=== PATIENT | female | born 1985 | race African-American/Black ===

== ENCOUNTER 2016-06-29 03:29 | Inpatient (IN) | payer MEDICAID ==
[2016-06-29] VITALS (8 sets, daily range): BP systolic 98–124; BP diastolic 53–76
[~2016-06-29] VITALS: Ht 152.4 cm; Wt 81.6 kg
[~2016-06-29 03:29] MED LIST: Famotidine 20 MG/ 2ML VIAL IVP ONE
--- NOTE | 2016-06-29 04:27 | Emergency Room Report ---
History of Present Illness General Chief Complaint: Lower Extremity Injury Source: Patient Present Illness HPI Patient is a 30-year-old female who presented after increased lower extremity pain and vomiting. Patient gradual onset of symptoms. Patient stated that she been vomiting several times throughout the day. Patient states she had sick contacts similar symptoms. She denied hematemesis or bloody stools. She denies being . She says she had not been having any fever.The patient stated she been vomiting for the past 2 days. She reports having some epigastric pain which he describes as a crampy sensation Allergies: Coded Allergies: No Known Allergies (Unverified , 06/29/16) Patient History Past Medical History: see triage record Last Menstrual Period: A WEEK AND HALF AGO Now: No : 6 Reviewed Nursing Documentation: PMH: Agreed, PSxH: Agreed Nursing Documentation-PMH Past Medical History: No Stated History Review of Systems All Other Systems: negative except mentioned in HPI Physical Exam Vital Signs Date Time Temp Pulse Resp B/P Pulse Ox O2 Delivery O2 Flow Rate FiO2 06/29/16 03:38 99.3 110 18 111/71 97 Room Air Sp02 EP Interpretation: reviewed, normal General Appearance: normal inspection, well appearing, no apparent distress, alert, GCS 15 Head: atraumatic ENT: normal ENT inspection, hearing grossly normal, normal voice Neck: normal inspection, full range of motion, supple, no bony tend Respiratory: normal inspection, lungs clear, normal breath sounds, no respiratory distress, no retraction, no wheezing Cardiovascular #1: regular rate, rhythm, no edema Gastrointestinal: normal inspection, normal bowel sounds, non tender, soft, no guarding, no hernia, tenderness - epigastric Genitourinary: no CVA tenderness Musculoskeletal: normal inspection, back normal, normal range of motion Neurologic: normal inspection, alert, responsive, speech normal Psychiatric: normal inspection, judgement/insight normal, mood/affect normal Skin: normal inspection, normal color, no rash Medical Decision Making Diagnostic Impression: Primary Impression: UTI (urinary tract infection) Additional Impressions: Dehydration Hypokalemia ER Course Patient presented for abdominal pain. Differential diagnoses included ischemic bowel, appendicitis, perforated viscus, abdominal aortic aneurysm, inferior myocardial infarction, viral gastroenteritis Because of complexity of patient's case laboratory testing and imaging studies were ordered. Patient is given antiemetics.Patient was noted to have evidence of some dehydration.The patient started on IV fluids. Patient was given oral potassium.Gradual worsening of her during emergency department course she started on IV antibiotics. The patient was noted to have some evidence of urinary tract infection and as well as dehydration. The patient will be admitted to the hospital for further treatment of fever as well as rehydration. Laboratory Tests Test 06/29/16 04:34 06/29/16 04:39 06/29/16 05:25 Urine Color Yellow Urine Appearance Slightly cloudy Urine pH 6 (4.5-8.0) Urine Specific [place] 1.020 (1.005-1.035) Urine Protein 2+ (NEGATIVE) H Urine Glucose (UA) Negative (NEGATIVE) Urine Ketones 4+ (NEGATIVE) H Urine Occult Blood 2+ (NEGATIVE) H Urine Nitrite Negative (NEGATIVE) Urine Bilirubin Negative (NEGATIVE) Urine Urobilinogen 1 MG/DL (0.0-1.0) H Urine Leukocyte Esterase 2+ (NEGATIVE) H Urine RBC 2-4 /HPF (0 - 2) H Urine WBC 15-20 /HPF (0 - 2) H Urine Squamous Epithelial Cells Many /LPF (NONE/OCC) H Urine Bacteria Moderate /HPF (NONE) H Urine HCG, Qualitative Negative White Blood Count 3.1 K/UL (4.8-10.8) L Red Blood Count 4.31 M/UL (4.20-5.40) Hemoglobin 15.4 G/DL (12.0-16.0) Hematocrit 44.7 % (37.0-47.0) Mean Corpuscular Volume 104 FL (80-99) H Mean Corpuscular Hemoglobin 35.6 PG (27.0-31.0) H Mean Corpuscular Hemoglobin Concent 34.4 G/DL (32.0-36.0) Red Cell Distribution Width 10.2 % (11.6-14.8) L Platelet Count 148 K/UL (150-450) L Mean Platelet Volume 8.9 FL (6.5-10.1) Neutrophils (%) (Auto) % (45.0-75.0) Lymphocytes (%) (Auto) % (20.0-45.0) Monocytes (%) (Auto) % (1.0-10.0) Eosinophils (%) (Auto) % (0.0-3.0) Basophils (%) (Auto) % (0.0-2.0) Sodium Level 140 mEQ/L (135-145) Potassium Level 3.3 mEQ/L (3.4-4.9) L Chloride Level 98 mEQ/L (98-107) Carbon Dioxide Level 26 mEQ/L (20-30) Anion Gap 16 (5-15) H Blood Urea Nitrogen 8 mg/dL (7-23) Creatinine 0.8 mg/dL (0.5-0.9) Estimate Glomerular Filtration Rate > 60 mL/min (>60) Glucose Level 107 mg/dL (74-106) H Calcium Level 7.9 mg/dL (8.6-10.2) L Total Bilirubin 0.3 mg/dL (0.0-1.2) Aspartate Amino Transferase (AST) 19 U/L (5-40) Alanine Aminotransferase (ALT) 17 U/L (3-33) Alkaline Phosphatase 41 U/L (35-104) Total Protein 6.4 g/dL (6.6-8.7) L Albumin 3.6 g/dL (3.5-5.2) Globulin 2.8 g/dL Albumin/Globulin Ratio 1.2 (1.0-2.7) Lipase 21 U/L (< 60) Chest X-Ray Diagnostic Results EP Interpretation: Yes Findings: no consolidation, no effusion, no pneumothorax, no acute cardiopulmonary disease Number of Views: 1 Last Vital Signs Date Time Temp Pulse Resp B/P Pulse Ox O2 Delivery O2 Flow Rate FiO2 06/29/16 03:38 99.3 110 18 111/71 97 Room Air Status: unchanged Disposition: ADMITTED INPATIENT Condition: Serious Scripts Ondansetron (Zofran) 4 Mg Tablet 4 MG ORAL Q6H Y for Nausea & Vomiting, #30 TAB 0 Refills Prov: Ozzie Zayas 06/29/16 Cephalexin* (KEFLEX*) 500 Mg Capsule 500 MG ORAL Q6H, #28 CAP 0 Refills Prov: Ozzie Zayas 06/29/16 Ozzie Zayas Jun 29, 2016 04:27
[2016-06-29 04:53] LABS: MEAN CORPUSCULAR HEMOGLOBIN 35.6 PG (27.0-31.0); MEAN CORPUSCULAR HGB CONC 34.4 G/DL (32.0-36.0); MEAN CORPUSCULAR VOLUME 104 FL (80-99); MEAN PLATELET VOLUME 8.9 FL (6.5-10.1); PLATELET COUNT 148 K/UL (150-450); RED BLOOD COUNT 4.31 M/UL (4.20-5.40); RED CELL DISTRIBUTION WIDTH 10.2 % (11.6-14.8); WHITE BLOOD COUNT 3.1 K/UL (4.8-10.8)
[2016-06-29 05:00] LABS: APPEARANCE,URINE SLIGHTLY CLOUDY; KETONES,URINE 4+ (NEGATIVE); LEUKOCYTE ESTERASE ,URINE 2+ (NEGATIVE); NITRITE,URINE NEGATIVE (NEGATIVE); PH,URINE 6 (4.5-8.0); PROTEIN,URINE 2+ (NEGATIVE); UROBILINOGEN,URINE 1 MG/DL (0.0-1.0)
[2016-06-29 05:08] LABS: BACTERIA,URINE MODERATE /HPF; SQUAMOUS EPITHELIAL CELL,UR MANY /LPF (NONE/OCC); WBC,URINE 15-20 /HPF (0 - 2)
[2016-06-29] MEDS ORDERED: cefTRIAXone 1 GM in NS 55 ML IVPB ONE (05:15)
[2016-06-29 05:52] LABS: ALANINE AMINOTRANSFERASE 17 U/L (3-33); ALBUMIN/GLOBULIN RATIO 1.2 (1.0-2.7); ANION GAP 16 (5-15); ASPARTATE AMINO TRANSFERASE 19 U/L (5-40); CALCIUM 7.9 mg/dL (8.6-10.2); CARBON DIOXIDE 26 mEQ/L (20-30); CHLORIDE 98 mEQ/L (98-107); CREATININE 0.8 mg/dL (0.5-0.9); GLOMERULAR FILTRATION RATE > 60 mL/min (>60); HEMOLYSIS 16; LIPASE 21 U/L (< 60); POTASSIUM 3.3 mEQ/L (3.4-4.9); SODIUM 140 mEQ/L (135-145); TOTAL PROTEIN 6.4 g/dL (6.6-8.7)
[2016-06-29] MEDS: D5 1/2NS w/KCl 20mEq 1,000 ML IV SCH ×2 (05:56→13:15)
[2016-06-29] MEDS ORDERED: KEFLEX500 MG ORAL (06:21)
[2016-06-29] MEDS ORDERED: ZOFRAN4 MG ORAL (06:21)
[2016-06-29] MEDS ORDERED: Ketorolac 30mg Inj IV ONE (08:15)
[2016-06-29] MEDS ORDERED: Famotidine 20 MG/ 2ML VIAL IVP SCH (09:00)
--- NOTE | 2016-06-29 11:25 | Consultation ---
History of Present Illness General Date patient seen: Jun 29, 2016 Time patient seen: 11:21 Chief Complaint: Lower Extremity Injury Reason for Consultation: UTI Present Illness HPI 30 yo female with 1 week of progressive lower abdominal discomfort and weakness. Noted last week, admits to fevers. Did not seek medical care because she thought it was viral and would get better. Today felt very weak and was vomiting. Admitted to fevers as well. Denies dysuria, back pain, flank pain, hematuria. Allergies: Coded Allergies: No Known Allergies (Unverified , 06/29/16) Medication History Scheduled Cephalexin* (Keflex*), 500 MG ORAL Q6H Scheduled PRN Ondansetron (Zofran), 4 MG ORAL Q6H PRN for Nausea & Vomiting Patient History History Provided By: Patient, Family Member Healthcare decision maker Resuscitation status Advanced Directive on File Review of Systems Constitutional: Reports: fever, weakness Eye: Denies: acuity changes, blurred vision, discharge, double vision, eye pain , no symptoms, nose congestion, nose pain, other, see HPI, tearing ENT: Denies: ear discharge, ear pain, hearing loss, mouth pain, nasal discharge , no symptoms, nose congestion, nose pain, other, see HPI, throat pain, throat swelling Respiratory: Denies: MITCHELL, cough, no symptoms, orthopnea, other, see HPI, shortness of breath, sputum, stridor, wheezing Cardiovascular: Denies: PND, chest pain, edema, no symptoms, other, palpitations, see HPI, syncope Gastrointestinal: Reports: abdominal pain Genitourinary: Denies: discharge, dysuria, frequency, hematuria, incontinence, no symptoms, other, pain, retention, see HPI, urgency, vag bleed/dc Musculoskeletal: Denies: back pain, gout, joint pain, joint swelling, muscle pain, muscle stiffness, no symptoms, other, see HPI Skin: Denies: change in color, change in hair/nails, dryness, lesions, no symptoms, other, rash, see HPI Psychiatric: Denies: HI, SI, anxiety, depressed feelings, emotional problems, hallucinations, no symptoms, other, prior hx, see HPI Neurological: Denies: dizziness, focal weakness, headache, no symptoms, numbness, other, paresthesia, see HPI, seizure, syncope, tingling, tremors Endocrine: Denies: excessive sweating, flushing, increased thirst, increased urine, intolerance to temperature, no symptoms, other, see HPI, unexplained weight loss Hematologic/Lymphatic: Denies: anemia, blood clots, diathesis, easy bleeding, easy bruising, no symptoms, other, see HPI, swollen glands Physical Exam General Appearance: WD/WN HEENT: normocephalic, atraumatic Neck: non-tender, supple Respiratory/Chest: lungs clear Cardiovascular/Chest: normal rate, regular rhythm Abdomen: non tender, soft Extremities: non-tender Neurologic: alert, oriented x 3 Last 24 Hour Vital Signs Date Time Temp Pulse Resp B/P Pulse Ox O2 Delivery O2 Flow Rate FiO2 06/29/16 11:16 70 20 99/69 100 Room Air 06/29/16 09:22 91 20 109/67 100 Room Air 06/29/16 07:47 84 18 98/57 100 Room Air 06/29/16 07:06 100.3 83 18 116/76 100 Room Air 06/29/16 05:59 99.3 110 18 111/71 97 Room Air 06/29/16 03:38 99.3 110 18 111/71 97 Room Air Intake and Output 06/28/16 06/29/16 19:00 07:00 Intake Total 1000 ml Balance 1000 ml Intake IV Total 1000 ml # Voids 1 Laboratory Tests Test 06/29/16 04:34 06/29/16 04:39 06/29/16 05:25 Urine Color Yellow Urine Appearance Slightly cloudy Urine pH 6 (4.5-8.0) Urine Specific [place] 1.020 (1.005-1.035) Urine Protein 2+ (NEGATIVE) H Urine Glucose (UA) Negative (NEGATIVE) Urine Ketones 4+ (NEGATIVE) H Urine Occult Blood 2+ (NEGATIVE) H Urine Nitrite Negative (NEGATIVE) Urine Bilirubin Negative (NEGATIVE) Urine Urobilinogen 1 MG/DL (0.0-1.0) H Urine Leukocyte Esterase 2+ (NEGATIVE) H Urine RBC 2-4 /HPF (0 - 2) H Urine WBC 15-20 /HPF (0 - 2) H Urine Squamous Epithelial Cells Many /LPF (NONE/OCC) H Urine Bacteria Moderate /HPF (NONE) H Urine HCG, Qualitative Negative White Blood Count 3.1 K/UL (4.8-10.8) L Red Blood Count 4.31 M/UL (4.20-5.40) Hemoglobin 15.4 G/DL (12.0-16.0) Hematocrit 44.7 % (37.0-47.0) Mean Corpuscular Volume 104 FL (80-99) H Mean Corpuscular Hemoglobin 35.6 PG (27.0-31.0) H Mean Corpuscular Hemoglobin Concent 34.4 G/DL (32.0-36.0) Red Cell Distribution Width 10.2 % (11.6-14.8) L Platelet Count 148 K/UL (150-450) L Mean Platelet Volume 8.9 FL (6.5-10.1) Neutrophils (%) (Auto) % (45.0-75.0) Lymphocytes (%) (Auto) % (20.0-45.0) Monocytes (%) (Auto) % (1.0-10.0) Eosinophils (%) (Auto) % (0.0-3.0) Basophils (%) (Auto) % (0.0-2.0) Sodium Level 140 mEQ/L (135-145) Potassium Level 3.3 mEQ/L (3.4-4.9) L Chloride Level 98 mEQ/L (98-107) Carbon Dioxide Level 26 mEQ/L (20-30) Anion Gap 16 (5-15) H Blood Urea Nitrogen 8 mg/dL (7-23) Creatinine 0.8 mg/dL (0.5-0.9) Estimat Glomerular Filtration Rate > 60 mL/min (>60) Glucose Level 107 mg/dL (74-106) H Calcium Level 7.9 mg/dL (8.6-10.2) L Total Bilirubin 0.3 mg/dL (0.0-1.2) Aspartate Amino Transf (AST/SGOT) 19 U/L (5-40) Alanine Aminotransferase (ALT/SGPT) 17 U/L (3-33) Alkaline Phosphatase 41 U/L (35-104) Total Protein 6.4 g/dL (6.6-8.7) L Albumin 3.6 g/dL (3.5-5.2) Globulin 2.8 g/dL Albumin/Globulin Ratio 1.2 (1.0-2.7) Lipase 21 U/L (< 60) Height (Feet): 5 Weight (Pounds): 180 Medications Current Medications Medications (Trade) Dose Ordered Sig/Bill Route PRN Reason Start Time Stop Time Status Last Admin Dose Admin Dextrose/ Electrolytes (D5 0.45%NS W/ KCl 20mEq) 1,000 ml @ 125 mls/hr Q8H IV 06/29/16 05:15 07/29/16 05:14 06/29/16 05:56 Famotidine 20 mg 20 mg Q12HR IVP 06/29/16 09:00 07/29/16 08:59 06/29/16 04:53 Assessment/Plan Status: stable Assessment/Plan 30 yo female with likely cystitis turned to pyelonephritis based on symptom history and progression to fevers and nausea. No pain in urination or in flank. Likely pyelonephritis. Recommend supportive care, IVF, IV abx. Will need 2 weeks total of abx. 1. urine culture 2. IVF 3. IV abx 4. 2 total weeks of abx. Erasto Harris M.D. Jun 29, 2016 11:24
--- NOTE | 2016-06-29 11:32 | Diagnostic Imaging Report ---
Indication: Dyspnea Comparison: None A single view chest radiograph was obtained. Findings: Cardiomediastinal appearance is within normal limits for age. Pulmonary vascularity is appropriate. The diaphragmatic contour is smooth and costophrenic angles are sharp. No pleural effusions are identified. The bones are unremarkable. Impression: No acute findings
--- NOTE | 2016-06-29 13:25 | Infectious Diseases Prog Note ---
Assessment/Plan Problems: (1) Bronchitis, acute Assessment & Plan: will screen for influenza and strep A, start ceftriaxon and zithromax empirically (2) Acute pyelonephritis Assessment & Plan: will send blood culture, and urine culture, and start ceftriaxone empirically (3) Abdominal pain Assessment & Plan: due to number 1 , continue pain management as per primary (4) Nausea & vomiting Assessment & Plan: due to pyelonephritis, continue supportive care (5) Dehydration Assessment & Plan: continue ivf for hydration Subjective Allergies: Coded Allergies: No Known Allergies (Unverified , 06/29/16) Objective Vital Signs Last 24 Hour Vital Signs Date Time Temp Pulse Resp B/P Pulse Ox O2 Delivery O2 Flow Rate FiO2 06/29/16 12:14 99.1 63 18 111/53 98 Room Air 06/29/16 11:46 98.9 06/29/16 11:44 100.3 70 20 99/69 100 Room Air 06/29/16 11:16 70 20 99/69 100 Room Air 06/29/16 09:22 91 20 109/67 100 Room Air 06/29/16 07:47 84 18 98/57 100 Room Air 06/29/16 07:06 100.3 83 18 116/76 100 Room Air 06/29/16 05:59 99.3 110 18 111/71 97 Room Air 06/29/16 03:38 99.3 110 18 111/71 97 Room Air Height (Feet): 5 Height (Inches): 0.00 Weight (Pounds): 180 Laboratory Tests Test 06/29/16 04:34 06/29/16 04:39 06/29/16 05:25 Urine Color Yellow Urine Appearance Slightly cloudy Urine pH 6 (4.5-8.0) Urine Specific [place] 1.020 (1.005-1.035) Urine Protein 2+ (NEGATIVE) H Urine Glucose (UA) Negative (NEGATIVE) Urine Ketones 4+ (NEGATIVE) H Urine Occult Blood 2+ (NEGATIVE) H Urine Nitrite Negative (NEGATIVE) Urine Bilirubin Negative (NEGATIVE) Urine Urobilinogen 1 MG/DL (0.0-1.0) H Urine Leukocyte Esterase 2+ (NEGATIVE) H Urine RBC 2-4 /HPF (0 - 2) H Urine WBC 15-20 /HPF (0 - 2) H Urine Squamous Epithelial Cells Many /LPF (NONE/OCC) H Urine Bacteria Moderate /HPF (NONE) H Urine HCG, Qualitative Negative White Blood Count 3.1 K/UL (4.8-10.8) L Red Blood Count 4.31 M/UL (4.20-5.40) Hemoglobin 15.4 G/DL (12.0-16.0) Hematocrit 44.7 % (37.0-47.0) Mean Corpuscular Volume 104 FL (80-99) H Mean Corpuscular Hemoglobin 35.6 PG (27.0-31.0) H Mean Corpuscular Hemoglobin Concent 34.4 G/DL (32.0-36.0) Red Cell Distribution Width 10.2 % (11.6-14.8) L Platelet Count 148 K/UL (150-450) L Mean Platelet Volume 8.9 FL (6.5-10.1) Neutrophils (%) (Auto) % (45.0-75.0) Lymphocytes (%) (Auto) % (20.0-45.0) Monocytes (%) (Auto) % (1.0-10.0) Eosinophils (%) (Auto) % (0.0-3.0) Basophils (%) (Auto) % (0.0-2.0) Sodium Level 140 mEQ/L (135-145) Potassium Level 3.3 mEQ/L (3.4-4.9) L Chloride Level 98 mEQ/L (98-107) Carbon Dioxide Level 26 mEQ/L (20-30) Anion Gap 16 (5-15) H Blood Urea Nitrogen 8 mg/dL (7-23) Creatinine 0.8 mg/dL (0.5-0.9) Estimat Glomerular Filtration Rate > 60 mL/min (>60) Glucose Level 107 mg/dL (74-106) H Calcium Level 7.9 mg/dL (8.6-10.2) L Total Bilirubin 0.3 mg/dL (0.0-1.2) Aspartate Amino Transf (AST/SGOT) 19 U/L (5-40) Alanine Aminotransferase (ALT/SGPT) 17 U/L (3-33) Alkaline Phosphatase 41 U/L (35-104) Total Protein 6.4 g/dL (6.6-8.7) L Albumin 3.6 g/dL (3.5-5.2) Globulin 2.8 g/dL Albumin/Globulin Ratio 1.2 (1.0-2.7) Lipase 21 U/L (< 60) Current Medications Medications (Trade) Dose Ordered Sig/Bill Route PRN Reason Start Time Stop Time Status Last Admin Dose Admin Acetaminophen (Tylenol) 650 mg Q4H PRN ORAL Mild Pain/Temp > 100.5 06/29/16 13:00 07/29/16 12:59 UNV Dextrose/ Electrolytes (D5 0.45%NS W/ KCl 20mEq) 1,000 ml @ 125 mls/hr Q8H IV 06/29/16 05:15 07/29/16 05:14 06/29/16 05:56 Famotidine 20 mg 20 mg Q12HR IVP 06/29/16 09:00 07/29/16 08:59 06/29/16 04:53 Ondansetron HCl (Zofran) 4 mg Q6H PRN IVP Nausea & Vomiting 06/29/16 13:00 07/29/16 12:59 UNV Radha Sandoval M.D. Jun 29, 2016 13:25
[2016-06-29] MEDS: Azithromycin 250 MG in D5W 275 ML IV SCH (17:06)
[2016-06-29] MEDS ORDERED: Potassium Chloride 10 MEQ in D5 1/2NS 1,000 ML IV SCH (18:15)
[2016-06-29] MEDS: Metoclopramide 10mg/2ml Inj IVP PRN (18:38)
[2016-06-29] MEDS: Pantoprazole Inj IVP SCH (18:39)
[2016-06-29] MEDS: D5 1/2NS 1,000 ML IV SCH (18:39)
[2016-06-29] MEDS: cefTRIAXone 2 GM in D5W 110 ML IVPB SCH (19:51)
--- NOTE | 2016-06-29 21:08 | Consultation ---
DATE OF CONSULTATION: INFECTIOUS DISEASE CONSULTATION REQUESTING PHYSICIAN: Clovis Santiago M.D. REASON FOR CONSULTATION: Cough, upper respiratory symptom, and abdominal pain with nausea, vomiting, and recommendation for antibiotics therapy. HISTORY OF THE PRESENT ILLNESS: Ms. Janessa Reece is a 30-year-old female with no significant past medical history, presented to the hospital with worsening abdominal pain, nausea, vomiting, and nonproductive cough. It started on the weekend. The patient had initially upper respiratory illness, then she developed cough nonproductive with sore throat, followed by abdominal pain, nausea, and vomiting to the point that she could not keep anything down in her stomach. She denied any recent travel, but her son was recently sick with the viral illness. Denied any hematemesis or bloody stool. She has not been eating since the weekend due to the nausea and vomiting for the last couple of days. She describes her abdominal pain as cramps on and off, gets worse with eating. The patient had workup in the emergency room, showed evidence of UTI with negative chest x-ray for any acute infiltration. The patient was admitted to the hospital after she received dose of an IV antibiotics treatment for further evaluation and management and I was consulted by the primary provider for antibiotics recommendation for urine infection possible pyelonephritis and upper respiratory infection. REVIEW OF SYSTEMS: A 14-point system reviewed were all negative apart from the one I mentioned above in my History and Physical. PAST MEDICAL HISTORY: Negative. PAST SURGICAL HISTORY: Negative. SOCIAL HISTORY: She lives at home with son and sister no recent drugs, tobacco, or alcohol. FAMILY HISTORY: Negative for recurrent infection or immunocompromised condition. ALLERGIES: She has no known drug allergy. MEDICATIONS: She received ceftriaxone in the emergency room. The rest of her medications please refer to [facility]. PHYSICAL EXAMINATION: VITAL SIGNS: Temperature 99.1 degrees, pulse 63, respirations 18, blood pressure 111/53, and pulse oximetry 98% on room air. GENERAL: Young female, up in bed, is alert, coughing, and vomiting bilious material. Awake, alert, in mild distress. HEENT: Normocephalic and atraumatic. Pupils reactive to light equally. Moist oral mucosa. No exudate. Congested throat with mildly large tonsils. NECK: Supple. No lymphadenopathy. CARDIOVASCULAR: Regular rate and rhythm. No murmur or gallop. LUNGS: She had diffuse wheezing on both lung abraham with diminished breathing sounds at the bases. Normal breathing efforts. ABDOMEN: Soft and tender in the epigastric area. No rebound. No organomegaly. No ascites. EXTREMITIES: No edema. No cyanosis. LABORATORY AND DIAGNOSTIC DATA: Laboratory showed white count of 3.1, hemoglobin of 15.4, and platelet count of 148,000. BUN of 8, creatinine of 0.8. AST of 19 and ALT of 17. Urinalysis showed +2 leukocyte esterase, WBC 15 to 20 and many squamous epithelial cells and moderate bacteria. Urine HCG negative. Imaging, chest x-ray showed no acute finding. ASSESSMENT AND PLAN: 1. Acute bronchitis suspect recent upper respiratory infection. We will screen the patient for influenza and Streptococcus A, start ceftriaxone and Zithromax empiric treatment, monitor syndrome. 2. Acute pyelonephritis, we will send blood culture and urine culture. Start ceftriaxone empirically. 3. Abdominal pain due to acute pyelonephritis. Mainly continue pain management and supportive care as needed. 4. Nausea and vomiting due to pyelonephritis most likely, continue supportive care and nausea medication. Consult Gastrointestinal. 5. Dehydration, continue intravenous fluid for hydration. Encourage oral intake as needed. Radha Sandoval M.D. DR: Jose JOB#: [id number] CC:
--- NOTE | 2016-06-29 22:58 | Consultation ---
DATE OF CONSULTATION: 06/29/2016 HEMATOLOGY/ONCOLOGY CONSULTATION CONSULTING PHYSICIAN: Daniele Powers M.D. REQUESTING PHYSICIAN: Clovis Santiago M.D. REASON FOR CONSULTATION: Evaluation of leukopenia and thrombocytopenia. IDENTIFICATION DATA: Dear Dr. Clovis Santiago, The patient is a pleasant 30-year-old female with a past medical history, which is significant for abdominal pain as well as nausea and vomiting, which began approximately two weeks ago. The patient was noted to have fever in the ER and she was admitted for further evaluation and care. She has been feeling weak as well as having nausea and vomiting bilious substance. She had a white count of 3.2 and platelet count of 148,000. Therefore, Hematology service was consulted for evaluation and treatment of underlying blood dyscrasia . PAST MEDICAL HISTORY: None noted. PAST SURGICAL HISTORY: None. MEDICATIONS: Keflex. ALLERGIES: No known drug allergies. REVIEW OF SYSTEMS: Constitutional: The patient with fever and some weakness noted. No night sweats however. HEENT: No headache, hearing, or vision changes. Breasts: No lumps, pain, or discharge. Pulmonary: No cough, sputum, or shortness of breath. Cardiovascular: No chest pain, tightness, or palpitations. Gastrointestinal: The patient does have some nausea and does have vomiting as well as abdominal pain. Genitourinary: No dysuria, frequency, or urgency. Musculoskeletal: No joint swelling, muscle pain, or trauma. Neurologic: No dizziness, fainting, or seizures. PHYSICAL EXAMINATION: GENERAL: The patient is in no acute distress. VITAL SIGNS: Temperature 100.3 degrees Fahrenheit, pulse of 83, respiratory rate 12, blood pressure 116/96, and pulse oximetry is 100% on room air. PULMONARY: Decreased breath sounds. CARDIOVASCULAR: Regular rhythm. No S3 or S4. ABDOMEN: Soft, nontender, and nondistended. EXTREMITIES: There is 1+ edema. LABORATORY DATA: WBC 3.1, hemoglobin 15.4, hematocrit 45 , and platelet count 148,000. Urine is positive for leukocyte esterase as well as urine WBCs of 15 and 20 and urine bacteria was moderate. Squamous cells were many as well. ASSESSMENT: 1. Leukopenia potentially secondary to underlying infection versus benign congenital neutropenia versus other causes such as viral etiology. We will workup as noted below. 2. Thrombocytopenia potentially secondary to infection versus viral process versus baseline. 3. Pyelonephritis potentially secondary to urinary tract infection with history of fever and chills. 4. Abdominal pain. 5. dehydration. RECOMMENDATIONS: 1. Monitor counts. 2. Peripheral smear ordered. 3. Hepatitis panel and HIV ordered. 4. Ultrasound of the abdomen pending. 5. Antibiotics as needed. 6. GI prophylaxis with Pepcid. 7. Zofran for nausea and vomiting. 8. Discussed with staff. Thank you Dr. Clovis Santiago for this kind referral. Please do not hesitate to contact me for any further questions. Daniele Powers M.D. DR: TRENT JOB#: [id number] CC:
[2016-06-30] VITALS: BP 102/51
[2016-06-30] MEDS: Metoclopramide 10mg/2ml Inj IVP PRN ×2 (00:52→08:23)
[2016-06-30] MEDS: D5 1/2NS 1,000 ML IV SCH ×3 (02:48→18:30)
[2016-06-30] MEDS: Morphine Sulfate 2mg/ml Inj IVP PRN ×3 (02:49→17:59)
[2016-06-30 04:00] VITALS: BP 126/77
[2016-06-30 08:00] VITALS: BP 113/69
--- NOTE | 2016-06-30 08:16 | Consultation ---
History of Present Illness General Date patient seen: Jun 30, 2016 Present Illness Allergies: Coded Allergies: No Known Allergies (Unverified , 06/29/16) Medication History Scheduled Cephalexin* (Keflex*), 500 MG ORAL Q6H Scheduled PRN Ondansetron (Zofran), 4 MG ORAL Q6H PRN for Nausea & Vomiting Patient History Healthcare decision maker Resuscitation status Full Code Advanced Directive on File Physical Exam Last 24 Hour Vital Signs Date Time Temp Pulse Resp B/P Pulse Ox O2 Delivery O2 Flow Rate FiO2 06/30/16 04:00 100.4 95 18 126/77 99 Room Air 06/30/16 00:00 98.4 83 18 102/51 100 Room Air 06/29/16 20:00 100.0 95 16 124/73 100 Room Air 06/29/16 17:00 100.2 89 16 118/58 98 Room Air 06/29/16 12:14 99.1 63 18 111/53 98 Room Air 06/29/16 11:46 98.9 06/29/16 11:44 100.3 70 20 99/69 100 Room Air 06/29/16 11:16 70 20 99/69 100 Room Air 06/29/16 09:22 91 20 109/67 100 Room Air Intake and Output 06/29/16 06/30/16 19:00 07:00 Intake Total 0 ml 30 ml Output Total 500 ml Balance 0 ml -470 ml Intake Oral 0 ml 30 ml Output Emesis 500 ml # Voids 3 Height (Feet): 5 Height (Inches): 0.00 Weight (Pounds): 180 Medications Current Medications Medications (Trade) Dose Ordered Sig/Bill Route PRN Reason Start Time Stop Time Status Last Admin Dose Admin Acetaminophen (Tylenol) 650 mg Q4H PRN ORAL Mild Pain/Temp > 100.5 06/29/16 13:45 07/29/16 13:44 Azithromycin/ Dextrose (Zithromax/D5W) 275 ml @ 275 mls/hr Q24HRS IV 06/29/16 16:00 07/03/16 15:59 06/29/16 17:06 Ceftriaxone Sodium 2 gm/ Dextrose 110 ml @ 220 mls/hr Q24H IVPB 06/29/16 18:00 07/06/16 17:59 06/29/16 19:51 Dextrose/Sodium Chloride (D5 0.45% NS) 1,000 ml @ 125 mls/hr Q8H IV 06/29/16 18:30 07/29/16 18:29 06/30/16 02:48 Metoclopramide HCl (Reglan) 10 mg Q6H PRN IVP Nausea & Vomiting 06/29/16 18:30 07/29/16 18:29 06/30/16 00:52 Morphine Sulfate (Morphine Sulfate) 2 mg Q4H PRN IVP For Pain 06/30/16 01:45 07/07/16 01:44 06/30/16 02:49 Ondansetron HCl 4 mg 4 mg Q6H PRN IVP Nausea & Vomiting 06/29/16 13:45 07/29/16 13:44 06/30/16 00:06 Pantoprazole 40 mg 40 mg DAILY IVP 06/29/16 18:15 07/29/16 18:14 06/29/16 18:39 Assessment/Plan Problem List: (1) Acute pyelonephritis ICD Codes: N10 - Acute pyelonephritis SNOMED: 67353885 (2) Abdominal pain Assessment & Plan: intractable ICD Codes: R10.9 - Unspecified abdominal pain SNOMED: 14697110 (3) UTI (urinary tract infection) ICD Codes: N39.0 - Urinary tract infection, site not specified SNOMED: 86371525 Assessment/Plan seen dictated WYATT NOVOA Jun 30, 2016 08:16
--- NOTE | 2016-06-30 08:22 | General Progress Note ---
Assessment/Plan Assessment/Plan ASSESSMENT: 1. Leukopenia potentially secondary to underlying infection versus benign congenital neutropenia versus other causes such as viral etiology. Will workup as noted below. HIV is negative 2. Thrombocytopenia potentially secondary to infection versus viral process versus baseline. Is at 148k 3. Pyelonephritis potentially secondary to urinary tract infection with history of fever and chills. 4. Abdominal pain. 5. Dehydration. RECOMMENDATIONS: 1. Monitor counts. 2. Peripheral smear ordered. 3. Hepatitis panel pend and HIV negative 4. Ultrasound of the abdomen pending. 5. Antibiotics as needed. 6. GI prophylaxis with Pepcid. 7. Zofran for nausea/vomiting. 8. staff. Thank you, Daniele Powers MD Subjective Constitutional: Reports: no symptoms HEENT: Reports: no symptoms Cardiovascular: Reports: no symptoms Respiratory: Reports: no symptoms Gastrointestinal/Abdominal: Reports: no symptoms Genitourinary: Reports: no symptoms Neurologic/Psychiatric: Reports: anxiety Endocrine: Reports: no symptoms Hematologic/Lymphatic: Reports: anemia Allergies: Coded Allergies: No Known Allergies (Unverified , 06/29/16) Subjective stable, no events overnight, no fevers or chills Objective Last 24 Hour Vital Signs Date Time Temp Pulse Resp B/P Pulse Ox O2 Delivery O2 Flow Rate FiO2 06/30/16 04:00 100.4 95 18 126/77 99 Room Air 06/30/16 00:00 98.4 83 18 102/51 100 Room Air 06/29/16 20:00 100.0 95 16 124/73 100 Room Air 06/29/16 17:00 100.2 89 16 118/58 98 Room Air 06/29/16 12:14 99.1 63 18 111/53 98 Room Air 06/29/16 11:46 98.9 06/29/16 11:44 100.3 70 20 99/69 100 Room Air 06/29/16 11:16 70 20 99/69 100 Room Air 06/29/16 09:22 91 20 109/67 100 Room Air Intake and Output 06/29/16 06/30/16 19:00 07:00 Intake Total 0 ml 30 ml Output Total 500 ml Balance 0 ml -470 ml Intake Oral 0 ml 30 ml Output Emesis 500 ml # Voids 3 Height (Feet): 5 Height (Inches): 0.00 Weight (Pounds): 180 General Appearance: alert EENT: TMs normal Neck: supple Cardiovascular: normal rate Respiratory/Chest: normal breath sounds Abdomen: non tender Extremities: non-tender Edema: 1+ Leg (L), 1+ Leg (R) Edema: mild edema Neurologic: oriented x 3 Skin: warm/dry Daniele Powers Jun 30, 2016 08:22
[2016-06-30] MEDS: Pantoprazole Inj IVP SCH (08:24)
--- NOTE | 2016-06-30 09:36 | Diagnostic Imaging Report ---
Indication:Abdominal pain Technique: Grayscale and duplex Doppler imaging of the abdomen performed. Comparison: None Findings: The liver, demonstrated part of the pancreas, gallbladder, aorta and IVC, both kidneys, spleen appear unremarkable. There is no nodularity of the liver surface identified. There is no biliary ductal dilatation identified. CBD is 5.5 mL. Doppler evaluation of the main portal vein shows patency. There is no ascites. No hydronephrosis seen. Impression: Negative abdominal ultrasound.
--- NOTE | 2016-06-30 11:02 | Diagnostic Imaging Report ---
Indication: Abdominal pain Comparison: None Single view of the abdomen obtained Findings: Bowel gas pattern is nonspecific. No mass, ectopic calcifications, or abnormal gas collections are identified. The bones are unremarkable. IUD noted Impression: No acute findings
--- NOTE | 2016-06-30 11:29 | Diagnostic Imaging Report ---
Indication: Abdominal pain Technique: Continuous helical transaxial imaging of the abdomen and pelvis was obtained from the lung bases to the pubic symphysis during intravenous contrast administration. Coronal 2-D reformats were also obtained. Study obtained in a Siemens sensation [address] Total Dose length Product (DLP): [address] Dose Index Volume (CTDIvol): 17 mGy Comparison: None Findings: Mild patchy densities are demonstrated at the periphery of the right lung base anteriorly as well as in the medial aspect of left lower lobe. These are probably areas of atelectasis. Spleen is unremarkable. There is a tiny low-density focus in the liver measuring about 3 mm too small to adequately characterize. This is seen in the inferior right lobe. There is a small hiatal hernia. There is no hydronephrosis. Both kidneys enhance normally. No abnormalities of the pancreas, gallbladder or adrenal glands are appreciated. The stomach is not well-distended on this exam. There is an intrauterine device present. There is a small amount of free fluid within the cul-de-sac likely physiologic given age and sex of the patient. A few diverticula are noted in the colon without evidence of inflammation or diverticulitis. The appendix is seen and appears normal. No evidence of bowel obstruction or free air. Impression: No acute findings demonstrated. Intrauterine device Minimal free fluid within the pelvis probably physiologic. Diverticulosis of the colon. No definite diverticulitis. Small hiatal hernia Tiny hypodensity in the liver too small to characterize. The CT scanner at [facility] is accredited by the [employer] and the scans are performed using protocols designed to limit radiation exposure to as low as reasonably achievable to attain images of sufficient resolution adequate for diagnostic evaluation.
[2016-06-30 12:15] VITALS: BP 107/59
[2016-06-30 12:36] LABS: MEAN CORPUSCULAR HEMOGLOBIN 35.8 PG (27.0-31.0); MEAN CORPUSCULAR VOLUME 100 FL (80-99); MEAN PLATELET VOLUME 6.2 FL (6.5-10.1); PLATELET COUNT 113 K/UL (150-450); RED BLOOD COUNT 3.53 M/UL (4.20-5.40); RED CELL DISTRIBUTION WIDTH 9.6 % (11.6-14.8); WHITE BLOOD COUNT 2.7 K/UL (4.8-10.8)
[2016-06-30 13:43] LABS: BAND NEUTROPHILS % (MANUAL) 3 % (0-8); BASOPHILS % (MANUAL) 0 % (0-2); EOSINOPHILS % (MANUAL) 1 % (0-3); LYMPHOCYTES % (MANUAL) 36 % (20-45); NEUTROPHILS % (MANUAL) 49 % (45-75); PLATELET ESTIMATE DECREASED; TOTAL CELLS COUNTED 100
[2016-06-30 13:44] LABS: ANISOCYTOSIS 1+; PLATELET MORPHOLOGY NORMAL
--- NOTE | 2016-06-30 15:34 | Infectious Diseases Prog Note ---
Assessment/Plan Problems: (1) Bronchitis, acute Assessment & Plan: screening for influenza is negative, screening for strep A is pending , continue ceftriaxon and zithromax empirically (2) Acute pyelonephritis Assessment & Plan: will send blood culture, and urine culture, and start ceftriaxone empirically (3) Abdominal pain Assessment & Plan: due to number 1 , CT was negative for any pathology , continue pain management as per primary (4) Nausea & vomiting Assessment & Plan: due to pyelonephritis, continue supportive care (5) Dehydration Assessment & Plan: continue ivf for hydration Subjective Constitutional: Reports: anorexia, fatigue HEENT: Reports: congestion, dysphagia Respiratory: Reports: productive cough Cardiovascular: Reports: no symptoms Gastrointestinal/Abdominal: Reports: bloating, nausea Genitourinary: Reports: no symptoms Neurologic: Reports: no symptoms Psychiatric: Reports: no symptoms Skin: Reports: no symptoms Endocrine: Reports: no symptoms Hematologic: Reports: no symptoms Allergies: Coded Allergies: No Known Allergies (Unverified , 06/29/16) All Systems: reviewed and negative except above Objective Vital Signs Last 24 Hour Vital Signs Date Time Temp Pulse Resp B/P Pulse Ox O2 Delivery O2 Flow Rate FiO2 06/30/16 12:15 98.2 70 20 107/59 99 Room Air 06/30/16 09:22 99.5 06/30/16 09:00 102.2 06/30/16 08:00 102.2 103 19 113/69 99 Room Air 06/30/16 04:00 100.4 95 18 126/77 99 Room Air 06/30/16 00:00 98.4 83 18 102/51 100 Room Air 06/29/16 20:00 100.0 95 16 124/73 100 Room Air 06/29/16 17:00 100.2 89 16 118/58 98 Room Air Height (Feet): 5 Height (Inches): 0.00 Weight (Pounds): 180 General Appearance: WD/WN, no acute distress HEENT: normocephalic, atraumatic, anicteric, mucous membranes moist Respiratory/Chest: chest wall non-tender, normal breath sounds, no respiratory distress, no accessory muscle use, decreased breath sounds, expiratory wheezing Cardiovascular: normal peripheral pulses, normal rate, regular rhythm, no gallop/murmur Abdomen: normal bowel sounds, soft, non tender, no organomegaly, non distended , no mass Extremities: no cyanosis, no clubbing Skin: no rash, no lesions Microbiology Date/Time Source Procedure Growth Status 06/30/16 11:11 Nasopharynx Influenza Types A,B Antigen (RICHADR) - Final Complete 06/29/16 04:34 Urine,Clean Catch Urine Culture - Preliminary Resulted Laboratory Tests Test 06/30/16 12:25 White Blood Count 2.7 K/UL (4.8-10.8) L Red Blood Count 3.53 M/UL (4.20-5.40) L Hemoglobin 12.6 G/DL (12.0-16.0) Hematocrit 35.1 % (37.0-47.0) L Mean Corpuscular Volume 100 FL (80-99) H Mean Corpuscular Hemoglobin 35.8 PG (27.0-31.0) H Mean Corpuscular Hemoglobin Concent 36.0 G/DL (32.0-36.0) Red Cell Distribution Width 9.6 % (11.6-14.8) L Platelet Count 113 K/UL (150-450) L Mean Platelet Volume 6.2 FL (6.5-10.1) L Neutrophils (%) (Auto) % (45.0-75.0) Lymphocytes (%) (Auto) % (20.0-45.0) Monocytes (%) (Auto) % (1.0-10.0) Eosinophils (%) (Auto) % (0.0-3.0) Basophils (%) (Auto) % (0.0-2.0) Differential Total Cells Counted 100 Neutrophils % (Manual) 49 % (45-75) Lymphocytes % (Manual) 36 % (20-45) Monocytes % (Manual) 11 % (1-10) H Eosinophils % (Manual) 1 % (0-3) Basophils % (Manual) 0 % (0-2) Band Neutrophils 3 % (0-8) Platelet Estimate Decreased L Platelet Morphology Normal Anisocytosis 1+ Current Medications Medications (Trade) Dose Ordered Sig/Bill Route PRN Reason Start Time Stop Time Status Last Admin Dose Admin Acetaminophen (Tylenol) 650 mg Q4H PRN ORAL Mild Pain/Temp > 100.5 06/29/16 13:45 07/29/16 13:44 06/30/16 08:23 Azithromycin/ Dextrose (Zithromax/D5W) 275 ml @ 275 mls/hr Q24HRS IV 06/29/16 16:00 07/03/16 15:59 06/29/16 17:06 Ceftriaxone Sodium 2 gm/ Dextrose 110 ml @ 220 mls/hr Q24H IVPB 06/29/16 18:00 07/06/16 17:59 06/29/16 19:51 Dextrose/Sodium Chloride (D5 0.45% NS) 1,000 ml @ 125 mls/hr Q8H IV 06/29/16 18:30 07/29/16 18:29 06/30/16 11:00 Metoclopramide HCl (Reglan) 10 mg Q6H PRN IVP Nausea & Vomiting 06/29/16 18:30 07/29/16 18:29 06/30/16 08:23 Morphine Sulfate (Morphine Sulfate) 2 mg Q4H PRN IVP For Pain 06/30/16 01:45 07/07/16 01:44 06/30/16 08:23 Ondansetron HCl 4 mg 4 mg Q6H PRN IVP Nausea & Vomiting 06/29/16 13:45 07/29/16 13:44 06/30/16 00:06 Pantoprazole 40 mg 40 mg DAILY IVP 06/29/16 18:15 07/29/16 18:14 06/30/16 08:24 Radha Sandoval M.D. Jun 30, 2016 15:34
[2016-06-30 16:45] VITALS: BP 107/69
[2016-06-30] MEDS: Azithromycin 250 MG in D5W 275 ML IV SCH (16:45)
[2016-06-30] MEDS ORDERED: D5 1/2NS 1000ml IV ONE (17:05)
[2016-06-30] MEDS ORDERED: Tubing IV Secondary IV ONE (17:05)
[2016-06-30] MEDS: cefTRIAXone 2 GM in D5W 110 ML IVPB SCH (18:00)
--- NOTE | 2016-06-30 18:26 | General Progress Note ---
Assessment/Plan Assessment/Plan GI Consult Assessment - Abd pain - N/V - Negative CT, U/S, KUB Recommendations - NPO - IVF - PPI - EGD in am Thank you Abdirashideloise Zhang Subjective Allergies: Coded Allergies: No Known Allergies (Unverified , 06/29/16) Objective Last 24 Hour Vital Signs Date Time Temp Pulse Resp B/P Pulse Ox O2 Delivery O2 Flow Rate FiO2 06/30/16 16:45 98.1 82 20 107/69 98 06/30/16 12:15 98.2 70 20 107/59 99 Room Air 06/30/16 09:22 99.5 06/30/16 09:00 102.2 06/30/16 08:00 102.2 103 19 113/69 99 Room Air 06/30/16 04:00 100.4 95 18 126/77 99 Room Air 06/30/16 00:00 98.4 83 18 102/51 100 Room Air 06/29/16 20:00 100.0 95 16 124/73 100 Room Air Intake and Output 06/29/16 06/30/16 19:00 07:00 Intake Total 0 ml 30 ml Output Total 500 ml Balance 0 ml -470 ml Intake Oral 0 ml 30 ml Output Emesis 500 ml # Voids 3 Laboratory Tests 06/30/16 12:25: White Blood Count 2.7L, Red Blood Count 3.53L, Hemoglobin 12.6, Hematocrit 35.1L , Mean Corpuscular Volume 100H, Mean Corpuscular Hemoglobin 35.8H, Mean Corpuscular Hemoglobin Concent 36.0, Red Cell Distribution Width 9.6L, Platelet Count 113L, Mean Platelet Volume 6.2L, Neutrophils (%) (Auto) , Lymphocytes (%) (Auto) , Monocytes (%) (Auto) , Eosinophils (%) (Auto) , Basophils (%) (Auto) , Differential Total Cells Counted 100, Neutrophils % (Manual) 49, Lymphocytes % ( Manual) 36, Monocytes % (Manual) 11H, Eosinophils % (Manual) 1, Basophils % ( Manual) 0, Band Neutrophils 3, Platelet Estimate DecreasedL, Platelet Morphology Normal, Anisocytosis 1+ Height (Feet): 5 Height (Inches): 0.00 Weight (Pounds): 180 ZHANGFANTASMA Jun 30, 2016 18:25
[2016-06-30 19:11] LABS: ALANINE AMINOTRANSFERASE 15 U/L (3-33); ALBUMIN/GLOBULIN RATIO 1.1 (1.0-2.7); ANION GAP 14 (5-15); ASPARTATE AMINO TRANSFERASE 18 U/L (5-40); CALCIUM 7.6 mg/dL (8.6-10.2); CARBON DIOXIDE 25 mEQ/L (20-30); CHLORIDE 94 mEQ/L (98-107); CREATININE 0.7 mg/dL (0.5-0.9); GLOMERULAR FILTRATION RATE > 60 mL/min (>60); HEMOLYSIS 4; SODIUM 133 mEQ/L (135-145); TOTAL PROTEIN 6.1 g/dL (6.6-8.7)
--- NOTE | 2016-06-30 19:58 | History and Physical Report ---
DATE OF ADMISSION: 06/29/2016 HISTORY OF PRESENT ILLNESS: The patient is admitted for urinary tract infection. The patient also complains of some paresthesias and dysuria and is also noted to have early pyelonephritis. The patient is having abdominal pain for four day as well as vomiting. She is admitted for early pyelonephritis and UTI. Denies chills. Denies rectal bleeding. PAST MEDICAL HISTORY: GERD. PAST SURGICAL HISTORY: None. SOCIAL HISTORY: The patient has a history of drug abuse. No history of alcohol abuse. No smoking. MEDICATIONS: None. FAMILY HISTORY: Noncontributory. REVIEW OF SYSTEMS: HEENT: Denies headache. Respiratory: Denies shortness of breath. Denies cough. Cardiovascular: Denies chest pain. Denies orthopnea. Gastrointestinal: Reports abdominal pain and vomiting for four days. Denies constipation. Denies rectal bleeding. Extremities: Denies pain. Central Nervous System: Denies change in vision or speech pattern. PHYSICAL EXAMINATION: VITAL SIGNS: Temperature is 100.4, pulse is 195, blood pressure 126/77. HEENT: PERRLA. NECK: Supple. No lymphadenopathy. CHEST: Clear to auscultation. GASTROINTESTINAL: Soft. Mild epigastric tenderness. No rebound. No organomegaly. EXTREMITIES: No edema. NEUROLOGIC: Reflexes are equal on both sides. Moves all four extremities. Sensory intact to light touch. LABORATORY DATA: WBC of 3.1, hemoglobin 15.4, and platelets 148,000. Sodium 140, potassium 3.3, BUN of 8, creatinine 0.8, and glucose of 107. ASSESSMENT AND PLAN: 1. Paresthesia. 2. Urinary tract infection. 3. Early pyelonephritis. 4. Vomiting. 5. Abdominal pain. 6. Fever. 7. I have asked Dr. Sandoval, Dr. Guzman, Dr. Mosher, Dr. Holcomb, Dr. Hong and to see the patient for the above mentioned diagnoses and treatment. Clovis Santiago M.D. DR: DOROTA JOB#: [id number] CC:
[2016-06-30 20:00] VITALS: BP 92/55
--- NOTE | 2016-06-30 22:58 | Consultation ---
DATE OF CONSULTATION: 06/30/2016 GASTROLOGY CONSULTATION CONSULTING PHYSICIAN: Yanet Holcmob M.D. REQUESTING PHYSICIAN: Clovis Santiago M.D. CHIEF COMPLAINT: I was asked to see this patient by Dr. Clovis Santiago for evaluation of vomiting. HISTORY OF PRESENT ILLNESS: The patient is a 30-year-old woman without significant history, who came in with a two to three days history of abdominal pain and mild nausea and vomiting, which is intractable. She has had no diarrhea. No home medications. No abdominal surgeries. Her last menstrual cycle was 2 weeks ago. Her test was negative. The patient does have some gastroesophageal reflux symptoms. Her son has had a cough with nausea and vomiting. Her symptoms are somewhat but she is still vomiting. PAST MEDICAL HISTORY: Otherwise negative. ALLERGIES: She had no allergies. FAMILY HISTORY: Noncontributory. SOCIAL HISTORY: The patient does not smoke or drink. She is single. as needed. PHYSICAL EXAMINATION: GENERAL: The patient is a pleasant woman, seen in her room. HEENT: Normocephalic and atraumatic. Sclerae are anicteric. Oropharynx is clear. NECK: Supple. CHEST: Clear to auscultation. CARDIOVASCULAR: Regular rhythm and rate. ABDOMEN: Soft with some mild epigastric tenderness to palpation. EXTREMITIES: Revealed no edema. LABORATORY DATA: Noted. ASSESSMENT: 1. The patient presented with epigastric abdominal pain with nausea and vomiting. She has to workup so far with laboratory. CT scan and ultrasound and KUB were all negative, therefore, she will undergo endoscopy to rule out peptic ulcer disease. The patient understands the indications and risks and agrees to proceed. CT scan and abdominal ultrasound and KUB were all negative. The patient is therefore will be a candidate for endoscopy to evaluate for peptic ulcer disease and has agreed to proceed with antioxidant medications. 2. Intravenous fluids. 3. Proton pump inhibitor. 4. Endoscopy tomorrow morning. Thank you for asking me to participate in the care of this patient. Yanet Holcomb M.D. DR: ANGELY JOB#: [id number] CC:
[2016-07-01] VITALS (20 sets, daily range): BP systolic 98–161; BP diastolic 45–80
--- NOTE | 2016-07-01 02:28 | Consultation ---
DATE OF CONSULTATION: 06/30/2016 PAIN MANAGEMENT CONSULTATION CONSULTING PHYSICIAN: Linda Downing M.D. REFERRING PHYSICIAN: Clovis Santiago M.D. PHYSICIAN LIVESTOCK RANCHER: Edmundo Underwood CHIEF COMPLAINT: Abdominal pain. HISTORY OF PRESENT ILLNESS: This is a 30-year-old female, who is being seen in the Med/Surg floor of [facility] for initial comprehensive pain management consultation. The patient reports that she has been having abdominal pain which is an off and on pain rating it at a 9/10. Pain is acute. She is describing as a burning pain. She has nausea and vomiting and complaints of burning urination. She was admitted under the care of Dr. Santiago, seen by Infectious Disease and started on morphine 2 mg IV every four hours as needed for pain. The patient is comfortable and has been tolerating pain well on the current medication regimen. PAST MEDICAL HISTORY: None. PAST SURGICAL HISTORY: None. MEDICATIONS: None. ALLERGIES: No known drug allergies. SOCIAL HISTORY: Denies smoking, tobacco, drinking alcohol, or drug abuse. REVIEW OF SYSTEMS: Denies rash, fever, chills, sweating, dizziness, drowsiness, blurred vision, sore throat, and change in weight. She complains of nausea, vomiting, and abdominal pain with dysuria. PHYSICAL EXAMINATION: GENERAL: Alert, awake, and oriented x3. VITAL SIGNS: Blood pressure 126/77, heart rate is 95, oxygen saturation 99%, respiratory rate is 18, and temp is 100 degrees Fahrenheit. Height is 5 feet weight is 180 pounds. HEENT: PERRLA. NECK: Range of motion is full in all directions. No tenderness to paracervical muscles. No adenopathy. LUNGS: Decreased breath sounds bilaterally. ABDOMEN: tenderness to palpation. BACK: Range of motion is decreased due to the patient's pain and condition. EXTREMITIES: Upper extremity range of motion is full in all directions. Motor is intact. No cyanosis. No clubbing. No edema. Sensory is intact. Reflexes are not obtainable. No adenopathy. Lower extremity range of motion is decreased due to the patient's clinical condition. Motor is intact. No cyanosis. No clubbing. No edema. Sensory is intact. Reflexes are not obtainable. No adenopathy. ASSESSMENT: This is a 30-year-old female with intractable abdominal pain, pyelonephritis, nausea, and vomiting. PLAN: The patient will be continued on morphine 2 mg IV every 4 hours as needed for severe pain. The patient was discussed with Dr. Downing and Dr. Downing concurred. We will follow up the patient. Thank you very much for the courtesy of this consultation. Linda Downing M.D. YA Underwood DR: DYLAN JOB#: [id number] CC: ALLYSSA
[2016-07-01 07:15] LABS: ANION GAP 13 (5-15); CALCIUM 7.9 mg/dL (8.6-10.2); CARBON DIOXIDE 29 mEQ/L (20-30); CHLORIDE 96 mEQ/L (98-107); CREATININE 0.7 mg/dL (0.5-0.9); GLOMERULAR FILTRATION RATE > 60 mL/min (>60); HEMOLYSIS 8; POTASSIUM 3.5 mEQ/L (3.4-4.9); SODIUM 138 mEQ/L (135-145)
--- NOTE | 2016-07-01 08:32 | General Progress Note ---
Assessment/Plan Problem List: (1) Acute pyelonephritis ICD Codes: N10 - Acute pyelonephritis SNOMED: 67784748 (2) Abdominal pain Assessment & Plan: intractable ICD Codes: R10.9 - Unspecified abdominal pain SNOMED: 18130570 (3) UTI (urinary tract infection) ICD Codes: N39.0 - Urinary tract infection, site not specified SNOMED: 91930743 Assessment/Plan Pt will be continued on Morphine as needed. Pt was d/w Dr. Donwing and he concurred. Subjective Date patient seen: Jul 01, 2016 Time patient seen: 07:30 - am Allergies: Coded Allergies: No Known Allergies (Unverified , 06/29/16) Subjective REVIEW OF SYSTEMS: Denies rash, fever, chills, sweating, dizziness, drowsiness, blurred vision, sore throat, and change in weight. She complains of nausea, vomiting, and abdominal pain with dysuria. SUBJECTIVE: Pain has been better and is rated a 6/10 at this time. Objective Last 24 Hour Vital Signs Date Time Temp Pulse Resp B/P Pulse Ox O2 Delivery O2 Flow Rate FiO2 07/01/16 07:53 97.5 62 14 110/54 98 07/01/16 04:00 96.8 68 18 115/64 94 Room Air 07/01/16 00:00 97.3 72 18 101/45 97 Room Air 06/30/16 20:00 98.4 79 18 92/55 100 Room Air 06/30/16 16:45 98.1 82 20 107/69 98 06/30/16 12:15 98.2 70 20 107/59 99 Room Air 06/30/16 09:22 99.5 06/30/16 09:00 102.2 Intake and Output 06/30/16 07/01/16 19:00 07:00 Intake Total 875 ml 770 ml Balance 875 ml 770 ml Intake Oral 320 ml IV Total 875 ml 450 ml # Voids 1 5 Laboratory Tests 06/30/16 12:25: White Blood Count 2.7L, Red Blood Count 3.53L, Hemoglobin 12.6, Hematocrit 35.1L , Mean Corpuscular Volume 100H, Mean Corpuscular Hemoglobin 35.8H, Mean Corpuscular Hemoglobin Concent 36.0, Red Cell Distribution Width 9.6L, Platelet Count 113L, Mean Platelet Volume 6.2L, Neutrophils (%) (Auto) , Lymphocytes (%) (Auto) , Monocytes (%) (Auto) , Eosinophils (%) (Auto) , Basophils (%) (Auto) , Differential Total Cells Counted 100, Neutrophils % (Manual) 49, Lymphocytes % ( Manual) 36, Monocytes % (Manual) 11H, Eosinophils % (Manual) 1, Basophils % ( Manual) 0, Band Neutrophils 3, Platelet Estimate DecreasedL, Platelet Morphology Normal, Anisocytosis 1+ 06/30/16 18:50: Sodium Level 133L, Potassium Level 3.0L, Chloride Level 94L, Carbon Dioxide Level 25, Anion Gap 14, Blood Urea Nitrogen 4L, Creatinine 0.7, Estimat Glomerular Filtration Rate > 60, Glucose Level 143H, Calcium Level 7.6L, Total Bilirubin 0.3, Aspartate Amino Transf (AST/SGOT) 18, Alanine Aminotransferase ( ALT/SGPT) 15, Alkaline Phosphatase 35, Total Protein 6.1L, Albumin 3.3L, Globulin 2.8, Albumin/Globulin Ratio 1.1 07/01/16 06:05: Sodium Level 138, Potassium Level 3.5, Chloride Level 96L, Carbon Dioxide Level 29, Anion Gap 13, Blood Urea Nitrogen 4L, Creatinine 0.7, Estimat Glomerular Filtration Rate > 60, Glucose Level 97, Calcium Level 7.9L, Magnesium Level 2.0 Height (Feet): 5 Height (Inches): 0.00 Weight (Pounds): 180 Objective GENERAL: Alert, awake, and oriented x3. HEENT: PERRLA. NECK: Range of motion is full in all directions. No tenderness to paracervical muscles. No adenopathy. LUNGS: Decreased breath sounds bilaterally. ABDOMEN: tenderness to palpation. EXTREMITIES: No cyanosis. No clubbing. No edema. NEURO: No changes. WYATT NOVOA Jul 01, 2016 08:32
--- NOTE | 2016-07-01 09:36 | Pre-Procedure Note/Attestation ---
Pre-Procedure Note/Attestation Complete Prior to Procedure Planned Procedure: not applicable Procedure Narrative: EGD Indications for Procedure Pre-Operative Diagnosis: Abd pain Attestation I attest that I discussed the nature of the procedure; its benefits; risks and complications; and alternatives (and the risks and benefits of such alternatives ), prior to the procedure, with the patient (or the patient's legal union representative). I attest that, if there was a reasonable possibility of needing a blood transfusion, the patient (or the patient's legal union representative) was given the [facility] standardized written summary, pursuant to the [employer] Blood Safety Act ([place] Health and Safety Code # 1645, as amended). I attest that I re-evaluated the patient just prior to the surgery and that there has been no change in the patient's H&P, except as documented below: FANTASMA HAMMOND Jul 01, 2016 09:36
[2016-07-01] MEDS ORDERED: NS 550ML IV ONE (10:30)
--- NOTE | 2016-07-01 10:36 | Moderate Sedation - Procedural ---
Moderate Sedation HPI Home Medication Active Scripts Ondansetron (Zofran) 4 Mg Tablet, 4 MG ORAL Q6H Y for Nausea & Vomiting, #30 TAB 0 Refills Prov:Ozzie Zayas 06/29/16 Cephalexin* (KEFLEX*) 500 Mg Capsule, 500 MG ORAL Q6H, #28 CAP 0 Refills Prov:Ozzie Zayas 06/29/16 Patient History Allergies: Coded Allergies: No Known Allergies (Unverified , 06/29/16) PAST MEDICAL HISTORY: Past Surgeries: Social History: Pre-Procedural Mod Sedation Date: Jul 01, 2016 Pre-Assessment Time: 10:30 Vital Signs see record Pre-Sedation Assessment: Elective, Eval. Immed. Prior to Sed, Reviewed H&P, Patient Examined, Pre-proc Edu. done, Plan for Sedation Discuss, Change to pts cond. noted Airway Assessment (Malampati): I Heart: normal Lungs: normal Abdomen: abnormal Extremities: normal Pre-op Diagnosis: abdominal pain Evaluation Hx of untoward rxns to mod sed: No Procedures/Plans: EGD Plan for Moderate Sedation: Midazolam, Fentanyl ASA Score: II Informed Consent The nature of the procedure/sedation; its benefits; risks and complications; and alternatives (and the risks and benefits of such alternatives) were discussed with the patient (or their legal account manager sales representative), prior to the procedure. All questions were answered to the patient's (or their legal account manager sales representative's) satisfaction and the patient (or their legal account manager sales representative) gave informed consent to the procedure. I attest that I re-evaluated the patient just prior to the surgery and that there has been no change in the patient's H&P, except as documented below: Post Procedure Assessment Post Procedure TIme: 10:55 Communication: No Apparent Limitation Mental Status: Awake Respiration: Unlabored Skin Condition: WNL Adomen: WNL Nausea: NO Vomiting: NO FANTASMA HAMMOND Jul 01, 2016 10:36
[2016-07-01] MEDS ORDERED: fentaNYL 100 mcg/2 mL IV ONE (10:38)
--- NOTE | 2016-07-01 10:54 | Endoscopy Procedure Note ---
Endoscopy Procedure Note Indication for Procedure: N/V, pain Procedures Performed: EGD Operative Findings/Diagnosis: HH, esophagitis, fundus gross erythema Specimen: yes Pt Tolerated Procedure Well: Yes Estimated Blood Loss: none Anesthesiologist: None Anesthesia: moderate sedation Medication Given: midazolam, fentanyl Implant(s) used?: No 50 yrs or older w/o bx or poly: Not Applicable 10yrs. F/U not recommended: Not Applicable If not recommended, why?: FANTASMA HAMMOND Jul 01, 2016 10:54
--- NOTE | 2016-07-01 10:55 | Brief Operative Note ---
Immediate Post Operative Note Operative Note Chief Complaint: Abd pain, N/V Pre-op Diagnosis: Abd pain Procedure: EGD/bx Post-op Diagnosis: HH, esophagitis, prox gastritis Post-op Diagnosis: same as pre-op Surgeon: juliann Anesthesiologist: lidya Anesthesia: moderate sedation Specimen: yes Complications: none Condition: stable Estimated Blood Loss: none Drains: none Implant(s) used?: No FANTASMA HAMMOND Jul 01, 2016 10:55
[2016-07-01] MEDS: Pantoprazole Inj IVP SCH (12:03)
--- NOTE | 2016-07-01 14:14 | General Progress Note ---
Assessment/Plan Assessment/Plan ASSESSMENT: 1. Leukopenia potentially secondary to underlying infection versus benign congenital neutropenia versus other causes such as viral etiology. HIV is negative 2. Thrombocytopenia potentially secondary to infection versus viral process versus baseline. Is at 148k 3. Anemia 2/2 chronic disease 4. Pyelonephritis potentially secondary to urinary tract infection with history of fever and chills. 5. Abdominal pain. 6. Dehydration. RECOMMENDATIONS: 1. Monitor counts. 2. Peripheral smear ordered. 3. Hepatitis panel pend and HIV negative 4. CT Abd/Pelvis reviewed, no adenopathy 5. Antibiotics as needed. 6. GI prophylaxis with Pepcid. 7. Zofran for nausea/vomiting. 8. staff. Thank you, Daniele Powers MD Subjective Constitutional: Reports: no symptoms HEENT: Reports: no symptoms Cardiovascular: Reports: no symptoms Respiratory: Reports: no symptoms Gastrointestinal/Abdominal: Reports: nausea Genitourinary: Reports: no symptoms Neurologic/Psychiatric: Reports: no symptoms Endocrine: Reports: no symptoms Hematologic/Lymphatic: Reports: anemia Allergies: Coded Allergies: No Known Allergies (Unverified , 06/29/16) Subjective stable, no events overnight, no fevers or chills reported Objective Last 24 Hour Vital Signs Date Time Temp Pulse Resp B/P Pulse Ox O2 Delivery O2 Flow Rate FiO2 07/01/16 12:02 97.2 67 15 113/63 99 Room Air 07/01/16 11:52 97.8 56 16 112/61 100 Room Air 07/01/16 11:45 53 15 104/53 100 Room Air 07/01/16 11:30 55 18 107/54 100 Room Air 07/01/16 11:20 53 14 103/64 100 Room Air 07/01/16 11:15 56 17 105/52 100 Room Air 07/01/16 11:13 97.3 59 15 107/58 100 Room Air 07/01/16 11:13 97.5 69 16 100 Nasal Cannula 4.0 62 100 07/01/16 11:00 69 16 103/49 100 07/01/16 10:55 66 16 109/55 100 07/01/16 10:50 72 16 129/71 100 07/01/16 10:45 108 16 161/80 100 07/01/16 10:40 64 16 119/60 100 07/01/16 10:35 65 16 119/60 100 07/01/16 10:30 65 16 118/71 100 07/01/16 10:25 69 16 125/65 100 07/01/16 07:53 97.5 62 14 110/54 98 07/01/16 04:00 96.8 68 18 115/64 94 Room Air 07/01/16 00:00 97.3 72 18 101/45 97 Room Air 06/30/16 20:00 98.4 79 18 92/55 100 Room Air 06/30/16 16:45 98.1 82 20 107/69 98 Intake and Output 06/30/16 07/01/16 19:00 07:00 Intake Total 875 ml 770 ml Balance 875 ml 770 ml Intake Oral 320 ml IV Total 875 ml 450 ml # Voids 1 5 Laboratory Tests 06/30/16 18:50: Sodium Level 133L, Potassium Level 3.0L, Chloride Level 94L, Carbon Dioxide Level 25, Anion Gap 14, Blood Urea Nitrogen 4L, Creatinine 0.7, Estimat Glomerular Filtration Rate > 60, Glucose Level 143H, Calcium Level 7.6L, Total Bilirubin 0.3, Aspartate Amino Transf (AST/SGOT) 18, Alanine Aminotransferase ( ALT/SGPT) 15, Alkaline Phosphatase 35, Total Protein 6.1L, Albumin 3.3L, Globulin 2.8, Albumin/Globulin Ratio 1.1 07/01/16 06:05: Sodium Level 138, Potassium Level 3.5, Chloride Level 96L, Carbon Dioxide Level 29, Anion Gap 13, Blood Urea Nitrogen 4L, Creatinine 0.7, Estimat Glomerular Filtration Rate > 60, Glucose Level 97, Calcium Level 7.9L, Magnesium Level 2.0 Height (Feet): 5 Height (Inches): 0.00 Weight (Pounds): 180 General Appearance: no apparent distress EENT: TMs normal Neck: supple Cardiovascular: regular rhythm Respiratory/Chest: chest wall non-tender Extremities: normal range of motion Edema: 1+ Leg (L), 1+ Leg (R) Edema: mild edema Neurologic: alert Skin: warm/dry Daniele Powers Jul 01, 2016 14:14
--- NOTE | 2016-07-01 14:42 | General Progress Note ---
Assessment/Plan Problem List: (1) Abdominal pain ICD Codes: R10.9 - Unspecified abdominal pain SNOMED: 38283354 (2) Nausea & vomiting ICD Codes: R11.2 - Nausea with vomiting, unspecified SNOMED: 43987777 (3) Dehydration ICD Codes: E86.0 - Dehydration SNOMED: 25682587 (4) UTI (urinary tract infection) ICD Codes: N39.0 - Urinary tract infection, site not specified SNOMED: 05643572 Status: progressing Assessment/Plan afebrile vitals stable abdominal pain s/p vomiting reviewed chart and labs clinically improving Subjective ROS Limited/Unobtainable: Yes Constitutional: Reports: no symptoms HEENT: Reports: no symptoms Allergies: Coded Allergies: No Known Allergies (Unverified , 06/29/16) Objective Last 24 Hour Vital Signs Date Time Temp Pulse Resp B/P Pulse Ox O2 Delivery O2 Flow Rate FiO2 07/01/16 12:02 97.2 67 15 113/63 99 Room Air 07/01/16 11:52 97.8 56 16 112/61 100 Room Air 07/01/16 11:45 53 15 104/53 100 Room Air 07/01/16 11:30 55 18 107/54 100 Room Air 07/01/16 11:20 53 14 103/64 100 Room Air 07/01/16 11:15 56 17 105/52 100 Room Air 07/01/16 11:13 97.3 59 15 107/58 100 Room Air 07/01/16 11:13 97.5 69 16 100 Nasal Cannula 4.0 62 100 07/01/16 11:00 69 16 103/49 100 07/01/16 10:55 66 16 109/55 100 07/01/16 10:50 72 16 129/71 100 07/01/16 10:45 108 16 161/80 100 07/01/16 10:40 64 16 119/60 100 07/01/16 10:35 65 16 119/60 100 07/01/16 10:30 65 16 118/71 100 07/01/16 10:25 69 16 125/65 100 07/01/16 07:53 97.5 62 14 110/54 98 07/01/16 04:00 96.8 68 18 115/64 94 Room Air 07/01/16 00:00 97.3 72 18 101/45 97 Room Air 06/30/16 20:00 98.4 79 18 92/55 100 Room Air 06/30/16 16:45 98.1 82 20 107/69 98 Intake and Output 06/30/16 07/01/16 19:00 07:00 Intake Total 875 ml 770 ml Balance 875 ml 770 ml Intake Oral 320 ml IV Total 875 ml 450 ml # Voids 1 5 Laboratory Tests 06/30/16 18:50: Sodium Level 133L, Potassium Level 3.0L, Chloride Level 94L, Carbon Dioxide Level 25, Anion Gap 14, Blood Urea Nitrogen 4L, Creatinine 0.7, Estimat Glomerular Filtration Rate > 60, Glucose Level 143H, Calcium Level 7.6L, Total Bilirubin 0.3, Aspartate Amino Transf (AST/SGOT) 18, Alanine Aminotransferase ( ALT/SGPT) 15, Alkaline Phosphatase 35, Total Protein 6.1L, Albumin 3.3L, Globulin 2.8, Albumin/Globulin Ratio 1.1 07/01/16 06:05: Sodium Level 138, Potassium Level 3.5, Chloride Level 96L, Carbon Dioxide Level 29, Anion Gap 13, Blood Urea Nitrogen 4L, Creatinine 0.7, Estimat Glomerular Filtration Rate > 60, Glucose Level 97, Calcium Level 7.9L, Magnesium Level 2.0 Height (Feet): 5 Height (Inches): 0.00 Weight (Pounds): 180 EENT: PERRL/EOMI Cardiovascular: normal rate Respiratory/Chest: lungs clear Clovis Santiago MD Jul 01, 2016 14:42
[2016-07-01] MEDS: Azithromycin 250 MG in D5W 275 ML IV SCH (16:23)
--- NOTE | 2016-07-01 16:57 | Infectious Diseases Prog Note ---
Assessment/Plan Problems: (1) Bronchitis, acute Assessment & Plan: improving on ceftriaxon and zithromax, screening for strep A is pending , screening for influenza is negative , continue ceftriaxon and zithromax empirically (2) Acute pyelonephritis Assessment & Plan: blood culture is pending , and urine culture is growing gram negative bacillus , on ceftriaxone empirically (3) Abdominal pain Assessment & Plan: S/P EGD, CT was negative for any pathology , continue pain management as per primary (4) Nausea & vomiting Assessment & Plan: due to pyelonephritis, continue supportive care (5) Dehydration Assessment & Plan: continue ivf for hydration Subjective Constitutional: Reports: anorexia, fatigue HEENT: Reports: dysphagia Respiratory: Reports: dry cough Gastrointestinal/Abdominal: Reports: bloating, constipation Psychiatric: Reports: depression Allergies: Coded Allergies: No Known Allergies (Unverified , 06/29/16) All Systems: reviewed and negative except above Objective Vital Signs Last 24 Hour Vital Signs Date Time Temp Pulse Resp B/P Pulse Ox O2 Delivery O2 Flow Rate FiO2 07/01/16 15:59 98.1 66 20 114/65 98 Room Air 07/01/16 12:02 97.2 67 15 113/63 99 Room Air 07/01/16 11:52 97.8 56 16 112/61 100 Room Air 07/01/16 11:45 53 15 104/53 100 Room Air 07/01/16 11:30 55 18 107/54 100 Room Air 07/01/16 11:20 53 14 103/64 100 Room Air 07/01/16 11:15 56 17 105/52 100 Room Air 07/01/16 11:13 97.3 59 15 107/58 100 Room Air 07/01/16 11:13 97.5 69 16 100 Nasal Cannula 4.0 62 100 07/01/16 11:00 69 16 103/49 100 07/01/16 10:55 66 16 109/55 100 07/01/16 10:50 72 16 129/71 100 07/01/16 10:45 108 16 161/80 100 07/01/16 10:40 64 16 119/60 100 07/01/16 10:35 65 16 119/60 100 07/01/16 10:30 65 16 118/71 100 07/01/16 10:25 69 16 125/65 100 07/01/16 07:53 97.5 62 14 110/54 98 07/01/16 04:00 96.8 68 18 115/64 94 Room Air 07/01/16 00:00 97.3 72 18 101/45 97 Room Air 06/30/16 20:00 98.4 79 18 92/55 100 Room Air Height (Feet): 5 Height (Inches): 0.00 Weight (Pounds): 180 General Appearance: WD/WN, no acute distress HEENT: normocephalic, atraumatic, anicteric, mucous membranes moist Respiratory/Chest: chest wall non-tender, lungs clear, normal breath sounds, no respiratory distress, no accessory muscle use Cardiovascular: normal peripheral pulses, normal rate, regular rhythm, no gallop/murmur Abdomen: normal bowel sounds, soft, non tender, no organomegaly, non distended , no mass Extremities: no cyanosis, no clubbing Skin: no rash, no lesions Microbiology Date/Time Source Procedure Growth Status 06/30/16 11:11 Nasopharynx Influenza Types A,B Antigen (RICHARD) - Final Complete 06/29/16 04:34 Urine,Clean Catch Urine Culture - Preliminary Gram Negative Bacillus 1 Resulted Laboratory Tests Test 06/30/16 18:50 07/01/16 06:05 Sodium Level 133 mEQ/L (135-145) L 138 mEQ/L (135-145) Potassium Level 3.0 mEQ/L (3.4-4.9) L 3.5 mEQ/L (3.4-4.9) Chloride Level 94 mEQ/L (98-107) L 96 mEQ/L (98-107) L Carbon Dioxide Level 25 mEQ/L (20-30) 29 mEQ/L (20-30) Anion Gap 14 (5-15) 13 (5-15) Blood Urea Nitrogen 4 mg/dL (7-23) L 4 mg/dL (7-23) L Creatinine 0.7 mg/dL (0.5-0.9) 0.7 mg/dL (0.5-0.9) Estimat Glomerular Filtration Rate > 60 mL/min (>60) > 60 mL/min (>60) Glucose Level 143 mg/dL (74-106) H 97 mg/dL (74-106) Calcium Level 7.6 mg/dL (8.6-10.2) L 7.9 mg/dL (8.6-10.2) L Total Bilirubin 0.3 mg/dL (0.0-1.2) Aspartate Amino Transf (AST/SGOT) 18 U/L (5-40) Alanine Aminotransferase (ALT/SGPT) 15 U/L (3-33) Alkaline Phosphatase 35 U/L (35-104) Total Protein 6.1 g/dL (6.6-8.7) L Albumin 3.3 g/dL (3.5-5.2) L Globulin 2.8 g/dL Albumin/Globulin Ratio 1.1 (1.0-2.7) Magnesium Level 2.0 mg/dL (1.7-2.5) Current Medications Medications (Trade) Dose Ordered Sig/Bill Route PRN Reason Start Time Stop Time Status Last Admin Dose Admin Acetaminophen (Tylenol) 650 mg Q4H PRN ORAL Mild Pain/Temp > 100.5 06/29/16 13:45 07/29/16 13:44 06/30/16 08:23 Azithromycin/ Dextrose (Zithromax/D5W) 275 ml @ 275 mls/hr Q24HRS IV 06/29/16 16:00 07/03/16 15:59 07/01/16 16:23 Ceftriaxone Sodium 2 gm/ Dextrose 110 ml @ 220 mls/hr Q24H IVPB 06/29/16 18:00 07/06/16 17:59 06/30/16 18:00 Dextrose/ Electrolytes (D5NS W/KCl 20meq 1000ml) 1,000 ml @ 100 mls/hr Q10H IV 06/30/16 22:30 07/30/16 22:29 06/30/16 22:36 Metoclopramide HCl (Reglan) 10 mg Q6H PRN IVP Nausea & Vomiting 06/29/16 18:30 07/29/16 18:29 06/30/16 08:23 Morphine Sulfate 2 mg 2 mg Q4H PRN IVP For Pain 06/30/16 01:45 07/07/16 01:44 06/30/16 17:59 Ondansetron HCl 4 mg 4 mg Q6H PRN IVP Nausea & Vomiting 06/29/16 13:45 07/29/16 13:44 07/01/16 16:40 Pantoprazole (Protonix) 40 mg DAILY IVP 06/29/16 18:15 07/29/16 18:14 07/01/16 12:03 Radha Sandoval M.D. Jul 01, 2016 16:57
[2016-07-01] MEDS: Metoclopramide 10mg/2ml Inj IVP PRN (18:17)
[2016-07-01] MEDS: Morphine Sulfate 2mg/ml Inj IVP PRN (18:17)
[2016-07-01] MEDS: cefTRIAXone 2 GM in D5W 110 ML IVPB SCH (18:25)
--- NOTE | 2016-07-01 19:30 | Procedure Note ---
DATE OF PROCEDURE: 07/01/2016 PRE-ENDOSCOPIC DIAGNOSIS: Nausea, vomiting, and epigastric abdominal tenderness. POST-ENDOSCOPIC DIAGNOSES: 1. 2 to 3 cm hiatal hernia. 2. Erosive esophagitis above the hiatal hernia, which was biopsied. 3. Erythematous patch in the proximal stomach in very geographic features suggestive of submucosal hemorrhage, possibly due to nausea, vomiting, status post biopsy. 4. Status post random biopsy of the antrum. PROCEDURE: Upper gastrointestinal endoscopy with biopsy. SURGEON: Yanet Holcomb M.D. ANESTHESIA: Please see the separate anesthesiologist notes for details. DESCRIPTION OF PROCEDURE: The procedure, its risks, indications, alternatives, and possible complications were explained to the patient and informed consent was obtained. The patient was then sedated in the left lateral decubitus position and a diagnostic upper endoscope was introduced through oropharynx and advanced to the duodenum without difficulty. The endoscope was then gradually withdrawn, and the mucosa examined carefully. Examination of the upper gastric mucosa revealed the above findings. Biopsies were obtained. The patient was sent to recovery in good condition. COMPLICATIONS: None. RECOMMENDATIONS: 1. Follow up biopsy results. 2. Continue proton pump inhibitor. 3. Reflux precautions. 4. Resume oral diet. Yanet Holcomb M.D. DR: AMARILIS JOB#: [id number] CC:
[2016-07-02] VITALS: BP 99/60
[2016-07-02 04:00] VITALS: BP 110/67
[2016-07-02 08:32] VITALS: BP 120/71
--- NOTE | 2016-07-02 09:13 | General Progress Note ---
Assessment/Plan Problem List: (1) Acute pyelonephritis ICD Codes: N10 - Acute pyelonephritis SNOMED: 25863692 (2) Abdominal pain Assessment & Plan: intractable ICD Codes: R10.9 - Unspecified abdominal pain SNOMED: 83348006 (3) UTI (urinary tract infection) ICD Codes: N39.0 - Urinary tract infection, site not specified SNOMED: 39095347 Assessment/Plan Pt will be continued on Morphine as needed. Pt was d/w Dr. Downing and he concurred. Subjective Date patient seen: Jul 02, 2016 Time patient seen: 07:00 - am Allergies: Coded Allergies: No Known Allergies (Unverified , 06/29/16) Subjective REVIEW OF SYSTEMS: Denies rash, fever, chills, sweating, dizziness, drowsiness, blurred vision, sore throat, and change in weight. She complains of nausea, vomiting, and abdominal pain with dysuria. SUBJECTIVE: She continues to have abdominal pain rating it a 7/10 reduced on the Morphine. GI seeing pt s/p EGD/bx. Objective Last 24 Hour Vital Signs Date Time Temp Pulse Resp B/P Pulse Ox O2 Delivery O2 Flow Rate FiO2 07/02/16 08:32 97.0 65 15 120/71 100 Room Air 07/02/16 04:00 97.7 73 18 110/67 99 Room Air 07/02/16 00:00 97.5 63 18 99/60 100 Room Air 07/01/16 19:00 97.5 78 20 98/60 98 Room Air 07/01/16 18:47 97.5 07/01/16 15:59 98.1 66 20 114/65 98 Room Air 07/01/16 12:02 97.2 67 15 113/63 99 Room Air 07/01/16 11:52 97.8 56 16 112/61 100 Room Air 07/01/16 11:45 53 15 104/53 100 Room Air 07/01/16 11:30 55 18 107/54 100 Room Air 07/01/16 11:20 53 14 103/64 100 Room Air 07/01/16 11:15 56 17 105/52 100 Room Air 07/01/16 11:13 97.3 59 15 107/58 100 Room Air 07/01/16 11:13 97.5 69 16 100 Nasal Cannula 4.0 62 100 07/01/16 11:00 69 16 103/49 100 07/01/16 10:55 66 16 109/55 100 07/01/16 10:50 72 16 129/71 100 07/01/16 10:45 108 16 161/80 100 07/01/16 10:40 64 16 119/60 100 07/01/16 10:35 65 16 119/60 100 07/01/16 10:30 65 16 118/71 100 07/01/16 10:25 69 16 125/65 100 Intake and Output 07/01/16 07/02/16 19:00 07:00 Intake Total 755 ml 1120 ml Balance 755 ml 1120 ml Intake Oral 0 ml 120 ml IV Total 755 ml 1000 ml # Voids 1 4 Height (Feet): 5 Height (Inches): 0.00 Weight (Pounds): 180 Objective GENERAL: Alert, awake, and oriented x3. HEENT: PERRLA. NECK: Range of motion is full in all directions. No tenderness to paracervical muscles. No adenopathy. LUNGS: Decreased breath sounds bilaterally. ABDOMEN: tenderness to palpation. EXTREMITIES: No cyanosis. No clubbing. No edema. NEURO: No changes. WYATT NOVOA Jul 02, 2016 09:13
--- NOTE | 2016-07-02 09:39 | General Progress Note ---
Assessment/Plan Assessment/Plan ASSESSMENT: 1. Leukopenia potentially secondary to underlying infection versus benign congenital neutropenia versus other causes such as viral etiology. HIV is negative. Imaging does not show hypersplenomegaly or cirrhosis 2. Thrombocytopenia potentially secondary to infection versus viral process versus baseline. Is at 148k 3. Anemia 2/2 chronic disease 4. Pyelonephritis potentially secondary to urinary tract infection with history of fever and chills. 5. Abdominal pain. 6. Dehydration. RECOMMENDATIONS: 1. Monitor counts. 2. Peripheral smear ordered. 3. Hepatitis panel pend and HIV negative 4. CT Abd/Pelvis reviewed, no adenopathy 5. Antibiotics as needed. 6. GI prophylaxis with Pepcid. 7. Zofran for nausea/vomiting. 8. staff. Thank you, Daniele Powers MD Subjective Constitutional: Reports: no symptoms HEENT: Reports: no symptoms Cardiovascular: Reports: no symptoms Respiratory: Reports: no symptoms Gastrointestinal/Abdominal: Reports: no symptoms Genitourinary: Reports: no symptoms Neurologic/Psychiatric: Reports: no symptoms Endocrine: Reports: no symptoms Hematologic/Lymphatic: Reports: anemia Allergies: Coded Allergies: No Known Allergies (Unverified , 06/29/16) Subjective stable, no events overnight, no fevers or chills Objective Last 24 Hour Vital Signs Date Time Temp Pulse Resp B/P Pulse Ox O2 Delivery O2 Flow Rate FiO2 07/02/16 08:32 97.0 65 15 120/71 100 Room Air 07/02/16 04:00 97.7 73 18 110/67 99 Room Air 07/02/16 00:00 97.5 63 18 99/60 100 Room Air 07/01/16 19:00 97.5 78 20 98/60 98 Room Air 07/01/16 18:47 97.5 07/01/16 15:59 98.1 66 20 114/65 98 Room Air 07/01/16 12:02 97.2 67 15 113/63 99 Room Air 07/01/16 11:52 97.8 56 16 112/61 100 Room Air 07/01/16 11:45 53 15 104/53 100 Room Air 07/01/16 11:30 55 18 107/54 100 Room Air 07/01/16 11:20 53 14 103/64 100 Room Air 07/01/16 11:15 56 17 105/52 100 Room Air 07/01/16 11:13 97.3 59 15 107/58 100 Room Air 07/01/16 11:13 97.5 69 16 100 Nasal Cannula 4.0 62 100 07/01/16 11:00 69 16 103/49 100 07/01/16 10:55 66 16 109/55 100 07/01/16 10:50 72 16 129/71 100 07/01/16 10:45 108 16 161/80 100 07/01/16 10:40 64 16 119/60 100 07/01/16 10:35 65 16 119/60 100 07/01/16 10:30 65 16 118/71 100 07/01/16 10:25 69 16 125/65 100 Intake and Output 07/01/16 07/02/16 19:00 07:00 Intake Total 755 ml 1120 ml Balance 755 ml 1120 ml Intake Oral 0 ml 120 ml IV Total 755 ml 1000 ml # Voids 1 4 Height (Feet): 5 Height (Inches): 0.00 Weight (Pounds): 180 General Appearance: no apparent distress EENT: TMs normal Neck: supple Cardiovascular: regular rhythm Respiratory/Chest: normal breath sounds Abdomen: no organomegaly Pelvis: normal rectal exam Extremities: non-tender Edema: 1+ Leg (L), 1+ Leg (R) Neurologic: alert Skin: warm/dry Daniele Powers Jul 02, 2016 09:39
[2016-07-02] MEDS ORDERED: Guaifenesin/DM 10ml syrup ORAL PRN (09:45)
[2016-07-02] MEDS: Pantoprazole Inj IVP SCH (09:51)
[2016-07-02] MEDS: DuoNeb 0.5-3(2.5)mg/3ml neb HHN PRN ×2 (10:17→16:03)
[2016-07-02 10:26] LABS: MEAN CORPUSCULAR HEMOGLOBIN 35.7 PG (27.0-31.0); MEAN CORPUSCULAR HGB CONC 36.2 G/DL (32.0-36.0); MEAN CORPUSCULAR VOLUME 99 FL (80-99); MEAN PLATELET VOLUME 8.8 FL (6.5-10.1); PLATELET COUNT 148 K/UL (150-450); RED CELL DISTRIBUTION WIDTH 9.5 % (11.6-14.8); WHITE BLOOD COUNT 2.7 K/UL (4.8-10.8)
[2016-07-02 11:16] LABS: BAND NEUTROPHILS % (MANUAL) 0 % (0-8); BASOPHILS % (MANUAL) 0 % (0-2); EOSINOPHILS % (MANUAL) 0 % (0-3); LYMPHOCYTES % (MANUAL) 46 % (20-45); NEUTROPHILS % (MANUAL) 42 % (45-75); PLATELET ESTIMATE ADEQUATE; PLATELET MORPHOLOGY NORMAL; TOTAL CELLS COUNTED 100
[2016-07-02 11:52] VITALS: BP 115/57
--- NOTE | 2016-07-02 12:01 | General Progress Note ---
Assessment/Plan Problem List: (1) Abdominal pain ICD Codes: R10.9 - Unspecified abdominal pain SNOMED: 80698544 (2) Nausea & vomiting ICD Codes: R11.2 - Nausea with vomiting, unspecified SNOMED: 80433406 (3) Dehydration ICD Codes: E86.0 - Dehydration SNOMED: 38279214 (4) UTI (urinary tract infection) ICD Codes: N39.0 - Urinary tract infection, site not specified SNOMED: 75252683 Status: progressing Assessment/Plan uti improving abx per id afebrile reviewed chart and labs Subjective ROS Limited/Unobtainable: Yes Constitutional: Reports: no symptoms Allergies: Coded Allergies: No Known Allergies (Unverified , 06/29/16) Objective Last 24 Hour Vital Signs Date Time Temp Pulse Resp B/P Pulse Ox O2 Delivery O2 Flow Rate FiO2 07/02/16 11:52 97.9 70 16 115/57 99 Room Air 07/02/16 10:25 65 16 100 Room Air 21 07/02/16 10:17 62 16 100 Room Air 21 07/02/16 10:17 62 16 Room Air 21 07/02/16 10:17 21 07/02/16 08:32 97.0 65 15 120/71 100 Room Air 07/02/16 04:00 97.7 73 18 110/67 99 Room Air 07/02/16 00:00 97.5 63 18 99/60 100 Room Air 07/01/16 19:00 97.5 78 20 98/60 98 Room Air 07/01/16 18:47 97.5 07/01/16 15:59 98.1 66 20 114/65 98 Room Air 07/01/16 12:02 97.2 67 15 113/63 99 Room Air Intake and Output 07/01/16 07/02/16 19:00 07:00 Intake Total 755 ml 1120 ml Balance 755 ml 1120 ml Intake Oral 0 ml 120 ml IV Total 755 ml 1000 ml # Voids 1 4 Laboratory Tests 07/02/16 10:00: White Blood Count 2.7L, Red Blood Count 3.80L, Hemoglobin 13.6, Hematocrit 37.5 , Mean Corpuscular Volume 99, Mean Corpuscular Hemoglobin 35.7H, Mean Corpuscular Hemoglobin Concent 36.2H, Red Cell Distribution Width 9.5L, Platelet Count 148L, Mean Platelet Volume 8.8, Neutrophils (%) (Auto) , Lymphocytes (%) (Auto) , Monocytes (%) (Auto) , Eosinophils (%) (Auto) , Basophils (%) (Auto) , Differential Total Cells Counted 100, Neutrophils % ( Manual) 42L, Lymphocytes % (Manual) 46H, Monocytes % (Manual) 12H, Eosinophils % (Manual) 0, Basophils % (Manual) 0, Band Neutrophils 0, Platelet Estimate Adequate, Platelet Morphology Normal, Red Blood Cell Morphology Normal Height (Feet): 5 Height (Inches): 0.00 Weight (Pounds): 180 EENT: PERRL/EOMI Cardiovascular: normal rate Respiratory/Chest: lungs clear Abdomen: soft Clovis Santiago MD Jul 02, 2016 12:01
--- NOTE | 2016-07-02 15:54 | Diagnostic Imaging Report ---
Indication: Shortness of breath Technique: Single PA view of the chest. Findings: Comparison: 06/29/16 The bones and extra pulmonary soft tissues, cardiomediastinal silhouette, pulmonary vasculature and parenchyma, and pleural surfaces remain unremarkable. IMPRESSION: Negative PA chest, unchanged.
[2016-07-02 16:00] VITALS: BP 117/59
--- NOTE | 2016-07-02 16:50 | General Progress Note ---
Assessment/Plan Assessment/Plan Assessment - Abd pain - N/V - Negative CT, U/S, KUB - HH and KAT on EGD Recommendations - PO diet as tolerated - IVF - PPI - if symptoms persist --> SBFT Subjective Allergies: Coded Allergies: No Known Allergies (Unverified , 06/29/16) Subjective Feels better less pain still with some dry heaves Objective Last 24 Hour Vital Signs Date Time Temp Pulse Resp B/P Pulse Ox O2 Delivery O2 Flow Rate FiO2 07/02/16 16:03 21 07/02/16 16:03 66 16 100 Room Air 21 07/02/16 16:00 98.2 64 20 117/59 98 Room Air 07/02/16 11:52 97.9 70 16 115/57 99 Room Air 07/02/16 10:25 65 16 100 Room Air 21 07/02/16 10:17 62 16 100 Room Air 21 07/02/16 10:17 62 16 Room Air 21 07/02/16 10:17 21 07/02/16 08:32 97.0 65 15 120/71 100 Room Air 07/02/16 04:00 97.7 73 18 110/67 99 Room Air 07/02/16 00:00 97.5 63 18 99/60 100 Room Air 07/01/16 19:00 97.5 78 20 98/60 98 Room Air 07/01/16 18:47 97.5 Intake and Output 07/01/16 07/02/16 19:00 07:00 Intake Total 755 ml 1120 ml Balance 755 ml 1120 ml Intake Oral 0 ml 120 ml IV Total 755 ml 1000 ml # Voids 1 4 Laboratory Tests 07/02/16 10:00: White Blood Count 2.7L, Red Blood Count 3.80L, Hemoglobin 13.6, Hematocrit 37.5 , Mean Corpuscular Volume 99, Mean Corpuscular Hemoglobin 35.7H, Mean Corpuscular Hemoglobin Concent 36.2H, Red Cell Distribution Width 9.5L, Platelet Count 148L, Mean Platelet Volume 8.8, Neutrophils (%) (Auto) , Lymphocytes (%) (Auto) , Monocytes (%) (Auto) , Eosinophils (%) (Auto) , Basophils (%) (Auto) , Differential Total Cells Counted 100, Neutrophils % ( Manual) 42L, Lymphocytes % (Manual) 46H, Monocytes % (Manual) 12H, Eosinophils % (Manual) 0, Basophils % (Manual) 0, Band Neutrophils 0, Platelet Estimate Adequate, Platelet Morphology Normal, Red Blood Cell Morphology Normal Height (Feet): 5 Height (Inches): 0.00 Weight (Pounds): 180 Objective WDWN NCAT Supple CTA RRR soft ND mild epigastric TTP no edema non focal FANTASMA HAMMOND Jul 02, 2016 16:50
[2016-07-02] MEDS: Azithromycin 250 MG in D5W 275 ML IV SCH (17:33)
--- NOTE | 2016-07-02 17:37 | Infectious Diseases Prog Note ---
Assessment/Plan Problems: (1) Bronchitis, acute Assessment & Plan: improving on ceftriaxon and zithromax, screening for strep A is negative, screening for influenza is negative , continue ceftriaxon and zithromax empirically (2) Acute pyelonephritis Assessment & Plan: blood culture is pending , and urine culture is growing gram negative bacillus , on ceftriaxone empirically (3) Abdominal pain Assessment & Plan: S/P EGD, CT was negative for any pathology , continue pain management as per primary (4) Nausea & vomiting Assessment & Plan: resolved due to the above, continue supportive care (5) Dehydration Assessment & Plan: continue ivf for hydration Subjective Constitutional: Reports: anorexia, fatigue HEENT: Reports: congestion Allergies: Coded Allergies: No Known Allergies (Unverified , 06/29/16) All Systems: reviewed and negative except above Objective Vital Signs Last 24 Hour Vital Signs Date Time Temp Pulse Resp B/P Pulse Ox O2 Delivery O2 Flow Rate FiO2 07/02/16 16:13 68 16 100 Room Air 21 07/02/16 16:03 21 07/02/16 16:03 66 16 100 Room Air 21 07/02/16 16:00 98.2 64 20 117/59 98 Room Air 07/02/16 11:52 97.9 70 16 115/57 99 Room Air 07/02/16 10:25 65 16 100 Room Air 21 07/02/16 10:17 62 16 100 Room Air 21 07/02/16 10:17 62 16 Room Air 21 07/02/16 10:17 21 07/02/16 08:32 97.0 65 15 120/71 100 Room Air 07/02/16 04:00 97.7 73 18 110/67 99 Room Air 07/02/16 00:00 97.5 63 18 99/60 100 Room Air 07/01/16 19:00 97.5 78 20 98/60 98 Room Air 07/01/16 18:47 97.5 Height (Feet): 5 Height (Inches): 0.00 Weight (Pounds): 180 General Appearance: WD/WN, no acute distress HEENT: normocephalic, atraumatic, anicteric, mucous membranes moist, PERRL Respiratory/Chest: chest wall non-tender, lungs clear, normal breath sounds, no respiratory distress, no accessory muscle use Cardiovascular: normal peripheral pulses, normal rate, regular rhythm, no gallop/murmur, no JVD Abdomen: normal bowel sounds, soft, non tender, no organomegaly, non distended , no mass, no scars Extremities: no cyanosis, no clubbing Microbiology Date/Time Source Procedure Growth Status 06/30/16 11:11 Throat Throat Culture - Final NO BETA STREP ISOLATED. Complete 06/30/16 11:11 Nasopharynx Influenza Types A,B Antigen (RICHARD) - Final Complete Laboratory Tests Test 07/02/16 10:00 White Blood Count 2.7 K/UL (4.8-10.8) L Red Blood Count 3.80 M/UL (4.20-5.40) L Hemoglobin 13.6 G/DL (12.0-16.0) Hematocrit 37.5 % (37.0-47.0) Mean Corpuscular Volume 99 FL (80-99) Mean Corpuscular Hemoglobin 35.7 PG (27.0-31.0) H Mean Corpuscular Hemoglobin Concent 36.2 G/DL (32.0-36.0) H Red Cell Distribution Width 9.5 % (11.6-14.8) L Platelet Count 148 K/UL (150-450) L Mean Platelet Volume 8.8 FL (6.5-10.1) Neutrophils (%) (Auto) % (45.0-75.0) Lymphocytes (%) (Auto) % (20.0-45.0) Monocytes (%) (Auto) % (1.0-10.0) Eosinophils (%) (Auto) % (0.0-3.0) Basophils (%) (Auto) % (0.0-2.0) Differential Total Cells Counted 100 Neutrophils % (Manual) 42 % (45-75) L Lymphocytes % (Manual) 46 % (20-45) H Monocytes % (Manual) 12 % (1-10) H Eosinophils % (Manual) 0 % (0-3) Basophils % (Manual) 0 % (0-2) Band Neutrophils 0 % (0-8) Platelet Estimate Adequate Platelet Morphology Normal Red Blood Cell Morphology Normal Current Medications Medications (Trade) Dose Ordered Sig/Bill Route PRN Reason Start Time Stop Time Status Last Admin Dose Admin Acetaminophen (Tylenol) 650 mg Q4H PRN ORAL Mild Pain/Temp > 100.5 06/29/16 13:45 07/29/16 13:44 06/30/16 08:23 Albuterol/ Ipratropium (DuoNeb 0.5-3(2.5)mg/3ml) 3 ml Q4H PRN HHN Shortness of Breath 07/02/16 09:45 07/07/16 09:44 07/02/16 16:03 Azithromycin/ Dextrose (Zithromax/D5W) 275 ml @ 275 mls/hr Q24HRS IV 06/29/16 16:00 07/03/16 15:59 07/02/16 17:33 Ceftriaxone Sodium 2 gm/ Dextrose 110 ml @ 220 mls/hr Q24H IVPB 06/29/16 18:00 07/06/16 17:59 07/01/16 18:25 Dextrose/ Electrolytes (D5NS W/KCl 20meq 1000ml) 1,000 ml @ 100 mls/hr Q10H IV 06/30/16 22:30 07/30/16 22:29 07/02/16 06:21 Guaifenesin/ Dextromethorphan (Robitussin DM Syrup) 10 ml Q4H PRN ORAL For Cough 07/02/16 09:45 08/01/16 09:44 Metoclopramide HCl (Reglan) 10 mg Q6H PRN IVP Nausea & Vomiting 06/29/16 18:30 07/29/16 18:29 07/01/16 18:17 Morphine Sulfate 2 mg 2 mg Q4H PRN IVP For Pain 06/30/16 01:45 07/07/16 01:44 07/01/16 18:17 Ondansetron HCl 4 mg 4 mg Q6H PRN IVP Nausea & Vomiting 06/29/16 13:45 07/29/16 13:44 07/01/16 16:40 Pantoprazole (Protonix) 40 mg DAILY IVP 06/29/16 18:15 07/29/16 18:14 07/02/16 09:51 Radha Sandoval M.D. Jul 02, 2016 17:37
[2016-07-02 19:00] VITALS: BP 106/64
[2016-07-02] MEDS: cefTRIAXone 2 GM in D5W 110 ML IVPB SCH (20:02)
[2016-07-02] MEDS ORDERED: Tubing IV Secondary IV ONE (22:51)
[2016-07-02] MEDS ORDERED: NS 275ml ONE (22:51)
[2016-07-03] VITALS: BP 120/76
[2016-07-03 04:00] VITALS: BP 115/68
[2016-07-03 07:48] VITALS: BP 119/72
[2016-07-03] MEDS: Pantoprazole Inj IVP SCH (09:00)
--- NOTE | 2016-07-03 11:35 | General Progress Note ---
Assessment/Plan Problem List: (1) Abdominal pain ICD Codes: R10.9 - Unspecified abdominal pain SNOMED: 29462704 (2) Nausea & vomiting ICD Codes: R11.2 - Nausea with vomiting, unspecified SNOMED: 71236684 (3) Dehydration ICD Codes: E86.0 - Dehydration SNOMED: 81744818 (4) UTI (urinary tract infection) ICD Codes: N39.0 - Urinary tract infection, site not specified SNOMED: 65902910 Status: progressing Assessment/Plan afebrile uti is improving abx per id clinically improving Subjective ROS Limited/Unobtainable: Yes Constitutional: Reports: no symptoms Allergies: Coded Allergies: No Known Allergies (Unverified , 06/29/16) Objective Last 24 Hour Vital Signs Date Time Temp Pulse Resp B/P Pulse Ox O2 Delivery O2 Flow Rate FiO2 07/03/16 07:48 97.8 68 14 119/72 100 Room Air 07/03/16 07:34 73 16 Room Air 07/03/16 04:00 97.7 62 18 115/68 100 Room Air 07/03/16 00:00 97.7 60 18 120/76 100 Room Air 07/02/16 19:55 70 16 Room Air 07/02/16 19:00 98.1 64 20 106/64 100 Room Air 07/02/16 16:13 68 16 100 Room Air 21 07/02/16 16:03 21 07/02/16 16:03 66 16 100 Room Air 21 07/02/16 16:00 98.2 64 20 117/59 98 Room Air 07/02/16 11:52 97.9 70 16 115/57 99 Room Air Intake and Output 07/02/16 07/03/16 19:00 07:00 Intake Total 1595 ml 1000 ml Balance 1595 ml 1000 ml Intake Oral 400 ml 790 ml IV Total 1195 ml 210 ml # Voids 2 8 Height (Feet): 5 Height (Inches): 0.00 Weight (Pounds): 180 EENT: PERRL/EOMI Neck: supple Cardiovascular: normal rate Respiratory/Chest: lungs clear Abdomen: soft Clovis Santiago MD Jul 03, 2016 11:35
[2016-07-03 11:38] VITALS: BP 117/64
--- NOTE | 2016-07-03 12:50 | General Progress Note ---
Assessment/Plan Problem List: (1) Hiatal hernia ICD Codes: K44.9 - Diaphragmatic hernia without obstruction or gangrene SNOMED: 50469308 (2) Diverticulosis ICD Codes: K57.90 - Diverticulosis of intestine, part unspecified, without perforation or abscess without bleeding SNOMED: 433425303 (3) UTI (urinary tract infection) ICD Codes: N39.0 - Urinary tract infection, site not specified SNOMED: 44316135 (4) Abdominal pain ICD Codes: R10.9 - Unspecified abdominal pain SNOMED: 82408941 (5) Nausea & vomiting ICD Codes: R11.2 - Nausea with vomiting, unspecified SNOMED: 91964733 Assessment/Plan patient had one BM yesterday no vomiting today eating only a little may need SBFT on tuesday Subjective ROS Limited/Unobtainable: Yes Allergies: Coded Allergies: No Known Allergies (Unverified , 06/29/16) Subjective no vomiting today Objective Last 24 Hour Vital Signs Date Time Temp Pulse Resp B/P Pulse Ox O2 Delivery O2 Flow Rate FiO2 07/03/16 11:38 97.0 74 14 117/64 100 Room Air 07/03/16 07:48 97.8 68 14 119/72 100 Room Air 07/03/16 07:34 73 16 Room Air 07/03/16 04:00 97.7 62 18 115/68 100 Room Air 07/03/16 00:00 97.7 60 18 120/76 100 Room Air 07/02/16 19:55 70 16 Room Air 07/02/16 19:00 98.1 64 20 106/64 100 Room Air 07/02/16 16:13 68 16 100 Room Air 21 07/02/16 16:03 21 07/02/16 16:03 66 16 100 Room Air 21 07/02/16 16:00 98.2 64 20 117/59 98 Room Air Intake and Output 07/02/16 07/03/16 19:00 07:00 Intake Total 1595 ml 1000 ml Balance 1595 ml 1000 ml Intake Oral 400 ml 790 ml IV Total 1195 ml 210 ml # Voids 2 8 Height (Feet): 5 Height (Inches): 0.00 Weight (Pounds): 180 General Appearance: alert EENT: normal ENT inspection Neck: supple Cardiovascular: normal rate Respiratory/Chest: lungs clear Abdomen: normal bowel sounds, non tender, soft Extremities: non-tender ALEX BURTON Jul 03, 2016 12:50
[2016-07-03] MEDS ORDERED: Azithromycin 250mg tab ORAL SCH (16:00)
--- NOTE | 2016-07-03 17:59 | General Progress Note ---
Assessment/Plan Assessment/Plan ASSESSMENT: 1. Leukopenia potentially secondary to underlying infection versus benign congenital neutropenia versus other causes such as viral etiology. HIV is negative. Imaging does not show hypersplenomegaly or cirrhosis 2. Thrombocytopenia potentially secondary to infection versus viral process versus baseline. Is at 148k 3. Anemia 2/2 chronic disease 4. Pyelonephritis potentially secondary to urinary tract infection with history of fever and chills. 5. Abdominal pain. 6. Dehydration. RECOMMENDATIONS: 1. Monitor counts. 2. Peripheral smear ordered. 3. Hepatitis panel pend and HIV negative 4. CT Abd/Pelvis reviewed, no adenopathy 5. Antibiotics as needed. 6. GI prophylaxis with Pepcid. 7. Zofran for nausea/vomiting. 8. staff. Thank you, Mago Powers MD Subjective Subjective Constitutional: Reports: no symptoms HEENT: Reports: no symptoms Cardiovascular: Reports: no symptoms Respiratory: Reports: no symptoms Gastrointestinal/Abdominal: Reports: no symptoms Genitourinary: Reports: no symptoms Neurologic/Psychiatric: Reports: no symptoms Endocrine: Reports: no symptoms Hematologic/Lymphatic: Reports: no symptoms Allergies: Coded Allergies: No Known Allergies (Unverified , 06/29/16) Objective Last 24 Hour Vital Signs Date Time Temp Pulse Resp B/P Pulse Ox O2 Delivery O2 Flow Rate FiO2 07/03/16 11:38 97.0 74 14 117/64 100 Room Air 07/03/16 07:48 97.8 68 14 119/72 100 Room Air 07/03/16 07:34 73 16 Room Air 07/03/16 04:00 97.7 62 18 115/68 100 Room Air 07/03/16 00:00 97.7 60 18 120/76 100 Room Air 07/02/16 19:55 70 16 Room Air 07/02/16 19:00 98.1 64 20 106/64 100 Room Air Intake and Output 07/02/16 07/03/16 19:00 07:00 Intake Total 1595 ml 1000 ml Balance 1595 ml 1000 ml Intake Oral 400 ml 790 ml IV Total 1195 ml 210 ml # Voids 2 8 Height (Feet): 5 Height (Inches): 0.00 Weight (Pounds): 180 General Appearance: alert EENT: normal ENT inspection Neck: supple Cardiovascular: regular rhythm Respiratory/Chest: lungs clear Abdomen: soft Extremities: non-tender Edema: no edema noted Arm (L), no edema noted Arm (R), no edema noted Leg (L), no edema noted Leg (R), no edema noted Pedal (L), no edema noted Pedal (R), no edema noted Generalized Neurologic: alert Skin: warm/dry Lymphatic: normal anterior cervical (L), normal anterior cervical (R), normal axillary (L), normal axillary (R), normal inguinal (L), normal inguinal (R), normal other, normal posterior cervical (L), normal posterior cervical (R), normal submandibular (L), normal submandibular (R), normal supraclavicular (L), normal supraclavicular (R) MAGO POWERS Jul 03, 2016 17:59
--- NOTE | 2016-07-05 13:55 | Discharge Summary ---
Discharge Summary Hospital Course Date of Admission Jun 29, 2016 at 09:22 Date of Discharge Jul 03, 2016 at 14:00 Admitting Diagnosis febrile illness, dehydration, sepsis HPI Janessa Reece is a 30 year old female who was admitted on Jun 29, 2016 at 09: 22 for Febrile Illness,Dehydration,Sepsis Hospital Course dc summary # [id number] Discharge Condition Upon Discharge: stable Discharge Disposition Patient signed AMA Discharge Diagnoses: Discharge Instructions Discharge Instructions Special Instructions I have been assigned to complete a D/C Summary on this account. I was not involved in the patient management Sabrina Menon NP (Vanchtein) Jul 05, 2016 13:55
--- NOTE | 2016-07-06 11:38 | Discharge Summary 2 SIG ---
DATE OF ADMISSION: 06/29/2016 DATE OF SIGNING AGAINST MEDICAL ADVISE: 07/03/2016 REASON FOR ADMISSION: 30 years old female came to emergency room complaining of nausea, abdominal pain, and vomiting with gradual onset of symptoms. She denied blood in the stools or hematemesis. She denied being . She admitted to flank pain, but no dysuria. No blood in the urine. Symptoms worse within the last two days. Workup in the emergency room revealed that the patient has urinary tract infection as well as dehydration and hypokalemia. The patient was admitted for further management. ADMITTING DIAGNOSES: 1. Urinary tract infection/acute pyelonephrotisi . 2. Dehydration. 3. Hypokalemia. HOSPITAL STAY: The patient was admitted. The patient started on empiric antibiotics. Infectious Disease consult was requested. The patient also had a Urology consult. Urologist concluded the patient needs a total of two weeks of antibiotics. No other issues were identified. Infectious Disease followed with optimization of antibiotic regimen. Sputum culture was negative. Throat culture was negative. Influenza screen test was negative and urine culture was positive for Alcaligenes faecalis. Infectious Disease followed, need total two weeks of IV antibiotics. Due to the epigastric pain and vomiting, Gastrointestinal consult was requested. The patient subsequently underwent esophagogastroduodenoscopy with a biopsy with findings of hiatal hernia, erosive esophagitis, erythematous patch in the proximal stomach, status post biopsy, and status post biopsy of antrum. Biopsy results revealed no malignancy. No H pylori. Chest x-ray was negative. Abdominal ultrasound was negative. Abdominal pelvic CT was negative. The patient was placed on PPI and reflux precaution. Diet was resumed, able to tolerate in small amounts without nausea or vomiting. The patient was on the IV fluids ; electrolytes were stable. Potassium stable after replacement. The patient was noted to have cough, however, chest x-ray was negative, done twice. Supplemental oxygen, pulmonary toilet provided as needed. The patient was on empiric antibiotic coverage for possible pneumonia. However, to reiterate, chest x- ray was negative. Antitussive provided on as needed basis. The patient decided to sign against medical advice and on 07/03/2016, she signed the form. Nursing staff explained to her the risks and consequences of signing against medical advice, however, the patient signed the form and left. Clovis Santiago M.D. I have been assigned to dictate discharge summary on this account and I was not involved in the patient's management. Sabrina Menon (Vanchtein) N.PAylin DR: Luis JOB#: [id number] CC: [id number]
== END 2016-07-03 14:00 | disposition left against medical advice (07) | DRG 463 ==
LOC: EMR 03:50 → 4E 09:22 → EDBEDREQ 09:54 → 4E 12:01
PROC: 0DB68ZX Excision of Stomach, Via Natural or Artificial Opening Endoscopic, Diagnostic (ICD-10-PCS; principal; 2016-07-01 10:44)
DX: N10 Acute pyelonephritis (principal); D69.6 Thrombocytopenia, unspecified; J20.9 Acute bronchitis, unspecified; E86.0 Dehydration; K44.9 Diaphragmatic hernia without obstruction or gangrene; K29.70 Gastritis, unspecified, without bleeding; K20.8 Other esophagitis; D63.8 Anemia in other chronic diseases classified elsewhere; K57.90 Diverticulosis of intestine, part unspecified, without perforation or abscess without bleeding; E87.6 Hypokalemia
CPT/HCPCS: 36415; 71010; 74020; 74177; 76700; 80048; 80053; 81003; 81025; 83690; 83735; 85007; 85025; 86703; 86710; 87070; 87086; 87181; 87205; 94640; 94664; J2405; J2765; J7620; J8499